=== PATIENT | female | born 1985 | race Caucasian/White ===

== ENCOUNTER 2018-07-08 23:34 | Emergency (ER) | payer SELFPAY ==
[~2018-07-08] VITALS: Ht 157.5 cm; Wt 54.4 kg
--- OUTSIDE RECORDS SUMMARY | 2018-07-08 23:36 | XMS REPORT | Clinical Summary ---
Author Author [facility] Address Unknown Phone Unavailable Care Team Providers Care Networks Computer Consultant Name Role Phone Pcp, No PCP Unavailable Allergies No Known Allergies Medications End Date Status Medication Sig Dispensed Refills Start Date Active tamsulosin (FLOMAX) 0.4 Take 1 tablet 14 capsule 0 04/06/201 mg Cp24 24 hr capsule daily until 7 stone passes. 04/06/2018 naproxen (NAPROSYN) 375 Take 1 tablet 14 tablet 0 04/06/201 MG tablet (375 mg 7 total) by mouth 2 (two) times daily with breakfast and dinner. Active Problems Not on file Social History Date Tobacco Use Types Packs/Day Years Used Never Smoker Alcohol Use Drinks/Week oz/Week Comments No Sex Assigned at Date Recorded Not on file Industry Job Start Date Occupation Not on file Not on file Not on file Travel End Travel History Travel Start No recent travel history available. Last Filed Vital Signs Not on file Plan of Treatment Not on file Results Not on fileafter 07/07/2017 Insurance Payer Benefit Subscriber ID Type Phone Address Plan / Group MEDICAID - MEDICAID MGD GENERIC xxxxxxxxxxxxxx Medicaid CARE MEDICAID Non-Contra HMO [id number]
--- OUTSIDE RECORDS SUMMARY | 2018-07-08 23:36 | XMS REPORT | Clinical Summary ---
Author Author [facility] Organization [facility] Address Unknown Phone Unavailable Care Team Providers Care Sales Representative Supervisor Name Role Phone Asked, No Pcp PCP Unavailable Allergies Active Allergy Reactions Severity Noted Date Comments Ibuprofen Itching 05/08/2018 Ketorolac Itching 03/04/2017 Current Medications Prescription Sig. Disp. Refills Start End Date Status Date sucralfate (CARAFATE) 1 Take 1 tablet (1 g total) 120 tablet 0 06/11/20 07/11/20 Active gram tablet by mouth 4 (four) times a 18 18 day before meals and nightly for 30 days. metoprolol tartrate Take 1 tablet (50 mg 60 tablet 0 06/11/20 07/11/20 Active (LOPRESSOR) 50 mg tablet total) by mouth 2 (two) 18 18 times a day for 30 days. ferrous sulfate 325 (65 Take 1 tablet (325 mg 60 tablet 0 06/11/20 07/11/20 Active FE) MG tablet total) by mouth 2 (two) 18 18 times a day with meals for 30 days. pantoprazole (PROTONIX) Take 1 tablet (40 mg 60 tablet 0 06/11/20 07/11/20 Active 40 MG EC tablet total) by mouth 2 (two) 18 18 times a day for 30 days. famotidine (PEPCID) 40 MG Take 1 tablet (40 mg 30 tablet 0 06/18/20 07/18/20 Active tablet total) by mouth daily for 18 18 30 days. tamsulosin (FLOMAX) 0.4 Take 1 capsule (0.4 mg 30 capsule 0 06/29/20 07/29/20 Active mg capsule total) by mouth daily for 18 18 30 days. ondansetron ODT (ZOFRAN Take 1 tablet (4 mg 12 tablet 0 06/29/20 07/29/20 Active ODT) 4 MG disintegrating total) by mouth every 12 18 18 tablet (twelve) hours as needed for nausea or vomiting for up to 30 days. traMADol (ULTRAM) 50 mg Take 1 tablet (50 mg 20 tablet 0 05/01/20 05/08/20 Discontin tablet total) by mouth every 6 18 18 ued (six) hours as needed for moderate pain for up to 5 days. sucralfate (CARAFATE) 1 Take 1 tablet (1 g total) 120 tablet 0 05/09/20 06/11/20 Discontin gram tablet by mouth 4 (four) times a 18 18 ued day before meals and nightly for 30 days. ondansetron ODT Take 1 tablet (4 mg 30 tablet 0 05/09/20 05/19/20 (ZOFRAN-ODT) 4 MG total) by mouth every 8 18 18 disintegrating tablet (eight) hours as needed for nausea or vomiting for up to 10 days. ferrous sulfate 325 (65 Take 1 tablet (325 mg 60 tablet 0 05/09/20 06/11/20 Discontin FE) MG tablet total) by mouth 2 (two) 18 18 ued times a day with meals for 30 days. sennosides-docusate Take 1 tablet by mouth 2 60 tablet 0 05/09/20 06/08/20 sodium (SENOKOT-S) 8.6-50 (two) times a day for 30 18 18 mg per tablet days. pantoprazole (PROTONIX) Take 1 tablet (40 mg 30 tablet 0 05/09/20 06/11/20 Discontin 40 MG EC tablet total) by mouth daily for 18 18 ued 30 days. metoprolol tartrate Take 50 mg by mouth 06/11/20 Discontin (LOPRESSOR) 50 mg tablet daily. 18 ued ondansetron ODT Take 1 tablet (4 mg 30 tablet 0 06/11/20 06/21/20 (ZOFRAN-ODT) 4 MG total) by mouth every 8 18 18 disintegrating tablet (eight) hours as needed for nausea or vomiting for up to 10 days. pantoprazole (PROTONIX) Take 1 tablet (40 mg 30 tablet 0 06/11/20 06/11/20 Discontin 40 MG EC tablet total) by mouth daily for 18 18 ued 30 days. ciprofloxacin (CIPRO) 500 Take 1 tablet (500 mg 14 tablet 0 06/11/20 06/18/20 MG tablet total) by mouth 2 (two) 18 18 times a day for 7 days. traMADol (ULTRAM) 50 mg Take 1 tablet (50 mg 18 tablet 0 06/11/20 06/16/20 tablet total) by mouth every 6 18 18 (six) hours as needed for moderate pain for up to 5 days. traMADol (ULTRAM) 50 mg Take 1 tablet (50 mg 10 tablet 0 06/18/20 06/25/20 tablet total) by mouth every 6 18 18 (six) hours as needed for severe pain for up to 10 doses. acetaminophen-codeine Take 1-2 tablets by mouth 15 tablet 0 06/29/20 07/04/20 (TYLENOL WITH CODEINE #3) every 6 (six) hours as 18 18 300-30 mg per tablet needed for moderate pain for up to 5 days. Active Problems No known active problems Resolved Problems Problem Noted Date Resolved Date Acute on chronic pancreatitis (HCC) 06/09/2018 06/11/2018 Epigastric pain 06/09/2018 06/11/2018 Overview: Added automatically from request for surgery [id number] Acute pancreatitis without infection or necrosis 05/07/2018 05/09/2018 Encounters Date Type Specialty Care Team Description 06/29/2018 Emergency Emergency Medicine Rian Fitzgerald MD Left flank pain (Primary Shaheen Lopez Dx) Geraldo Box MD 06/18/2018 Emergency Emergency Medicine Elias Blunt, Abdominal pain, DO unspecified abdominal location (Primary Dx); Hypertension, unspecified type 06/11/2018 Anesthesia Gastroenterology Sheyla Lemus MD 06/11/2018 Procedure Pass Gastroenterology 06/11/2018 Surgery Gastroenterology Luz Maria Piper MD ESOPHAGOGASTRODUODENOSCOP Y (EGD) with biopsy 06/09/2018 Emergency General Internal Medicine Ted Jacobson, DO Epigastric pain (Primary - Mazin Paul MD Dx); 06/11/2018 Maritza Hayes Acute on chronic Isabella Chun MD pancreatitis (HCC) 05/08/2018 Procedure Pass General Internal Medicine 05/07/2018 Emergency General Internal Medicine Jaylin Burnham, Non-intractable vomiting - DO with nausea, unspecified 05/09/2018 Elizabeth Alcaraz MD vomiting type (Primary Abouelseoud, Tanseem Dx); Isabella Chun MD Acute pancreatitis without infection or necrosis, unspecified pancreatitis type; Abdominal pain, unspecified abdominal location 05/01/2018 Emergency Emergency Medicine Jaylin Burnham, Flank pain (Primary Dx); DO Acute pancreatitis without infection or necrosis, unspecified pancreatitis type after 07/07/2017 Social History Tobacco Use Types Packs/Day Years Used Date Never Smoker Smokeless Tobacco: Never Used Alcohol Use Drinks/Week oz/Week Comments No Sex Assigned at Date Recorded Not on file Last Filed Vital Signs Vital Sign Reading Time Taken Blood Pressure 170/106 06/29/2018 1:33 AM CDT Pulse 99 06/29/2018 1:33 AM CDT Temperature 36.4 C (97.6 F) 06/29/2018 1:33 AM CDT Respiratory Rate 18 06/29/2018 1:33 AM CDT Oxygen Saturation 100% 06/29/2018 1:33 AM CDT Inhaled Oxygen - - Concentration Weight 54.4 kg (120 lb) 06/18/2018 7:47 PM CDT Height 157.5 cm (5' 2") 06/29/2018 1:33 AM CDT Body Mass Index 21.95 06/18/2018 7:47 PM CDT Plan of Treatment Health Maintenance Due Date Last Done Comments CERVICAL CANCER SCREENING 2006 INFLUENZA VACCINE 04/02/2018 Procedures Procedure Name Priority Date/Time Associated Diagnosis Comments CT RENAL STONE PROTOCOL STAT 06/29/2018 Results for this 3:01 AM CDT procedure are in the results section. HCG QUALITATIVE, URINE Routine 06/29/2018 Results for this SCREEN 2:04 AM CDT procedure are in the results section. URINALYSIS SCREEN AND Routine 06/29/2018 Results for this MICROSCOPY, WITH REFLEX 2:04 AM CDT procedure are in the TO CULTURE results section. ESTIMATED GFR STAT 06/29/2018 Results for this 1:57 AM CDT procedure are in the results section. LIPASE LEVEL STAT 06/29/2018 Results for this 1:57 AM CDT procedure are in the results section. COMPREHENSIVE METABOLIC STAT 06/29/2018 Results for this PANEL 1:57 AM CDT procedure are in the results section. HC COMPLETE BLD COUNT STAT 06/29/2018 Results for this W/AUTO DIFF 1:57 AM CDT procedure are in the results section. LACTIC ACID LEVEL Routine 06/29/2018 Results for this 1:55 AM CDT procedure are in the results section. URINE CULTURE Routine 06/29/2018 Results for this 1:35 AM CDT procedure are in the results section. CT ABDOMEN PELVIS W STAT 06/18/2018 Results for this CONTRAST 10:36 PM CDT procedure are in the results section. ESTIMATED GFR STAT 06/18/2018 Results for this 8:14 PM CDT procedure are in the results section. LIPASE LEVEL STAT 06/18/2018 Results for this 8:14 PM CDT procedure are in the results section. COMPREHENSIVE METABOLIC STAT 06/18/2018 Results for this PANEL 8:14 PM CDT procedure are in the results section. HC COMPLETE BLD COUNT STAT 06/18/2018 Results for this W/AUTO DIFF 8:14 PM CDT procedure are in the results section. HCG QUALITATIVE, URINE STAT 06/18/2018 Results for this SCREEN 8:10 PM CDT procedure are in the results section. URINALYSIS SCREEN AND STAT 06/18/2018 Results for this MICROSCOPY, WITH REFLEX 8:10 PM CDT procedure are in the TO CULTURE results section. URINE CULTURE STAT 06/18/2018 Results for this 7:49 PM CDT procedure are in the results section. SURGICAL PATHOLOGY Routine 06/11/2018 Results for this REQUEST 12:05 PM CDT procedure are in the results section. ESOPHAGOGASTRODUODENOSCOP 06/11/2018 Epigastric pain Y (EGD) 11:30 AM CDT ESTIMATED GFR Routine 06/11/2018 Results for this 7:16 AM CDT procedure are in the results section. COMPREHENSIVE METABOLIC Routine 06/11/2018 Results for this PANEL 7:16 AM CDT procedure are in the results section. HC COMPLETE BLD COUNT Routine 06/11/2018 Results for this W/AUTO DIFF 7:16 AM CDT procedure are in the results section. POTASSIUM LEVEL Timed 06/10/2018 Results for this 8:25 PM CDT procedure are in the results section. CT ABDOMEN PELVIS W STAT 06/10/2018 Results for this CONTRAST 3:27 PM CDT procedure are in the results section. URINE DRUGS OF ABUSE Routine 06/10/2018 Results for this SCREEN 12:11 PM CDT procedure are in the results section. LIPASE LEVEL Routine 06/10/2018 Results for this 6:47 AM CDT procedure are in the results section. ESTIMATED GFR Routine 06/10/2018 Results for this 6:47 AM CDT procedure are in the results section. BASIC METABOLIC PANEL Routine 06/10/2018 Results for this 6:47 AM CDT procedure are in the results section. HC COMPLETE BLD COUNT Routine 06/10/2018 Results for this W/AUTO DIFF 6:47 AM CDT procedure are in the results section. ESTIMATED GFR STAT 06/09/2018 Results for this 8:56 PM CDT procedure are in the results section. LIPASE LEVEL STAT 06/09/2018 Results for this 8:56 PM CDT procedure are in the results section. COMPREHENSIVE METABOLIC STAT 06/09/2018 Results for this PANEL 8:56 PM CDT procedure are in the results section. HC COMPLETE BLD COUNT STAT 06/09/2018 Results for this W/AUTO DIFF 8:56 PM CDT procedure are in the results section. HCG QUALITATIVE, URINE STAT 06/09/2018 Results for this SCREEN 8:39 PM CDT procedure are in the results section. URINALYSIS SCREEN AND STAT 06/09/2018 Results for this MICROSCOPY, WITH REFLEX 8:39 PM CDT procedure are in the TO CULTURE results section. GRAM STAIN STAT 06/09/2018 Results for this 8:39 PM CDT procedure are in the results section. URINE CULTURE STAT 06/09/2018 Results for this 8:39 PM CDT procedure are in the results section. ZZESTIMATED GFR Routine 05/09/2018 Results for this 5:02 AM CDT procedure are in the results section. COMPREHENSIVE METABOLIC Routine 05/09/2018 Results for this PANEL 5:02 AM CDT procedure are in the results section. CBC WITH PLATELET AND Routine 05/09/2018 Results for this DIFFERENTIAL 5:02 AM CDT procedure are in the results section. POTASSIUM LEVEL Timed 05/08/2018 Results for this 11:32 PM CDT procedure are in the results section. HEMOGLOBIN & HEMATOCRIT Routine 05/08/2018 Results for this 2:54 PM CDT procedure are in the results section. MRI CHOLANGIOGRAM W WO STAT 05/08/2018 Results for this CONTRAST 2:35 PM CDT procedure are in the results section. TRANSFUSE RED BLOOD CELLS Routine 05/08/2018 11:[address] ABDOMEN PELVIS WO STAT 05/08/2018 Results for this CONTRAST 8:49 AM CDT procedure are in the results section. XR ABDOMEN 1 VW PORTABLE STAT 05/08/2018 Results for this 6:54 AM CDT procedure are in the results section. PREPARE RBC Timed 05/08/2018 Results for this 6:30 AM CDT procedure are in the results section. TYPE AND SCREEN Timed 05/08/2018 Results for this 6:30 AM CDT procedure are in the results section. MANUAL DIFFERENTIAL Routine 05/08/2018 Results for this 5:03 AM CDT procedure are in the results section. COMPREHENSIVE METABOLIC Routine 05/08/2018 Results for this PANEL 5:03 AM CDT procedure are in the results section. ZZESTIMATED GFR Routine 05/08/2018 Results for this 5:03 AM CDT procedure are in the results section. LIPASE LEVEL Routine 05/08/2018 Results for this 5:03 AM CDT procedure are in the results section. PROTHROMBIN TIME WITH INR Routine 05/08/2018 Results for this 5:03 AM CDT procedure are in the results section. CBC WITH PLATELET AND Routine 05/08/2018 Results for this DIFFERENTIAL 5:03 AM CDT procedure are in the results section. SMEAR REVIEW STAT 05/07/2018 Results for this 6:17 PM CDT procedure are in the results section. ZZESTIMATED GFR STAT 05/07/2018 Results for this 6:17 PM CDT procedure are in the results section. LIPASE LEVEL STAT 05/07/2018 Results for this 6:17 PM CDT procedure are in the results section. COMPREHENSIVE METABOLIC STAT 05/07/2018 Results for this PANEL 6:17 PM CDT procedure are in the results section. HC COMPLETE BLD COUNT STAT 05/07/2018 Results for this W/AUTO DIFF 6:17 PM CDT procedure are in the results section. TRIGLYCERIDES Routine 05/07/2018 Results for this 5:40 PM CDT procedure are in the results section. HCG QUALITATIVE, URINE STAT 05/07/2018 Results for this SCREEN 5:40 PM CDT procedure are in the results section. URINALYSIS SCREEN AND STAT 05/07/2018 Results for this MICROSCOPY, WITH REFLEX 5:40 PM CDT procedure are in the TO CULTURE results section. GRAM STAIN STAT 05/07/2018 Results for this 5:40 PM CDT procedure are in the results section. URINE CULTURE STAT 05/07/2018 Results for this 5:40 PM CDT procedure are in the results section. CT RENAL STONE PROTOCOL STAT 05/01/2018 Results for this 5:08 PM CDT procedure are in the results section. SMEAR REVIEW STAT 05/01/2018 Results for this 3:55 PM CDT procedure are in the results section. ZZESTIMATED GFR STAT 05/01/2018 Results for this 3:55 PM CDT procedure are in the results section. LIPASE LEVEL STAT 05/01/2018 Results for this 3:55 PM CDT procedure are in the results section. COMPREHENSIVE METABOLIC STAT 05/01/2018 Results for this PANEL 3:55 PM CDT procedure are in the results section. HC COMPLETE BLD COUNT STAT 05/01/2018 Results for this W/AUTO DIFF 3:55 PM CDT procedure are in the results section. HCG QUALITATIVE, URINE STAT 05/01/2018 Results for this SCREEN 3:53 PM CDT procedure are in the results section. URINALYSIS SCREEN AND STAT 05/01/2018 Results for this MICROSCOPY, WITH REFLEX 3:53 PM CDT procedure are in the TO CULTURE results section. GRAM STAIN STAT 05/01/2018 Results for this 3:53 PM CDT procedure are in the results section. URINE CULTURE STAT 05/01/2018 Results for this 3:53 PM CDT procedure are in the results section. after 07/07/2017 Results * CT Renal Stone Protocol (06/29/2018 3:01 AM) Only the most recent of 2 results within the time period is included. Narrative Performed At EXAMINATION:CT RENAL STONE PROTOCOL [facility] CLINICAL HISTORY:L flank pain TECHNIQUE: Multiple axial images of the abdomen and pelvis were obtained without intravenous administration of iodinated contrast. Sagittal and coronal computerized reformatted images were also obtained. The lack of intravenous contrast reduces the sensitivity of detecting solid organ disease. CT imaging was performed with iterative reconstruction technique and/or automated exposure control to reduce radiation dose. COMPARISON:06/18/2018 IMPRESSION: Some air trapping is seen of the left lower lobe. Patient is status post cholecystectomy. Liver, spleen, pancreas, adrenal glands are normal. Simple cyst is seen of the inferior pole of left kidney. Punctate nonobstructive calculi are seen throughout the collecting system of the kidneys bilaterally. No hydronephrosis or hydroureter. The bladder is unremarkable. No free intraperitoneal fluid or air. Diverticulosis is seen without diverticulitis. The appendix is normal. No gastrointestinal tract obstruction. No acute osseous abnormalities. CONCLUSION: Multiple nonobstructive calculi are seen of the collecting system of the kidneys bilaterally. [facility]-[id number] Procedure Note Hm Interface, Radiology Results Incoming - 06/29/2018 3:16 AM CDT EXAMINATION: CT RENAL STONE PROTOCOL CLINICAL HISTORY: L flank pain TECHNIQUE: Multiple axial images of the abdomen and pelvis were obtained without intravenous administration of iodinated contrast. Sagittal and coronal computerized reformatted images were also obtained. The lack of intravenous contrast reduces the sensitivity of detecting solid organ disease. CT imaging was performed with iterative reconstruction technique and/or automated exposure control to reduce radiation dose. COMPARISON: 06/18/2018 IMPRESSION: Some air trapping is seen of the left lower lobe. Patient is status post cholecystectomy. Liver, spleen, pancreas, adrenal glands are normal. Simple cyst is seen of the inferior pole of left kidney. Punctate nonobstructive calculi are seen throughout the collecting system of the kidneys bilaterally. No hydronephrosis or hydroureter. The bladder is unremarkable. No free intraperitoneal fluid or air. Diverticulosis is seen without diverticulitis. The appendix is normal. No gastrointestinal tract obstruction. No acute osseous abnormalities. CONCLUSION: Multiple nonobstructive calculi are seen of the collecting system of the kidneys bilaterally. [facility]-[id number] Performing Organization Address City/State/Zipcode Phone Number [facility] [address] [place] [address] * Urinalysis screen and microscopy, with reflex to culture (06/29/2018 2:04 AM) Only the most recent of 5 results within the time period is included. Specimen site Clean catch [facility] Color, UA Yellow [facility] Appearance, UA Clear [facility] Specific gravity, UA 1.026 1.001 - 1.035 [facility] pH, UA 5.0 5.0 - 8.5 [facility] Protein, UA 1+ (A) Negative [facility] Glucose, UA Negative Negative [facility] Ketones, UA Negative Negative [facility] Bilirubin, UA Negative Negative [facility] Blood, UA Moderate (A) Negative [facility] Nitrite, UA Negative Negative [facility] Urobilinogen, UA Negative <2.0 [facility] Leukocyte esterase, UA Negative Negative [facility] Epithelial cells, UA Moderate /HPF [facility] WBC, UA 1 0 - 5 /HPF [facility] RBC, UA 23 (H) 0 - 5 /HPF [facility] Bacteria, UA None seen None seen [facility] Yeast, UA None seen [facility] Yeast with pseudohyphae, None seen [facility]A PATHOLOGY AND GENOMIC MEDICINE Specimen Urine Performing Organization Address City/State/Zipcode Phone Number [facility] [address] [place] [address] PATHOLOGY AND [employer] [facility] * hCG qualitative, urine screen (06/29/2018 2:04 AM) Only the most recent of 5 results within the time period is included. hCG qualitative, urine Negative Negative [facility] Comment: PATHOLOGY AND The manufacturers stated GENOMIC MEDICINE sensitivity of HcG test for serum is >/=10 mIU/ml and urine is >/=20mIU/ml. Specimen Urine Performing Organization Address City/[facility] Phone Number [facility] [address] [place] [address] PATHOLOGY AND [employer] * Estimated GFR (06/29/2018 1:57 AM) Only the most recent of 5 results within the time period is included. Estimated GFR 74 mL/min/1.73 m2 [facility] Comment: PATHOLOGY AND [employer] GENOMIC MEDICINE rpretation G1 >=90 Normal or high G2 60-89Mildly decreased [id number] Mildly to moderately decreased [id number] Moderately to severely decreased G4 15-29Severely decreased G5 <15Kidney failure The eGFR was calculated using the Chronic Kidney Disease Epidemiology Collaboration (CKD-EPI) equation. Interpretation is based on recommendations of the National Kidney Foundation-Kidney Disease Outcomes Quality Initiative (NKF-KDOQI) published in 2014. Specimen Plasma specimen Performing Organization Address City/State/Zipcode Phone Number [facility] [address] [place] [address] [employer] AND [employer] * CBC with platelet and differential (06/29/2018 1:57 AM) Only the most recent of 9 results within the time period is included. WBC 23.2 (H) 4.2 - 11.0 k/uL [facility] MEDIC[facility] RBC 4.34 4.04 - 5.86 m/uL [facility]OMIC MEDIC[facility] HGB 9.3 (L) 11.5 - 15.3 g/dL [facility]IC[facility] HCT 31.9 (L) 34.0 - 45.0 % [facility] MEDIC[facility] MCV 73.5 (L) 80.0 - 98.0 fL [facility]IC[facility] MCH 21.4 (L) 27.0 - 34.0 pg [facility]IC[facility] MCHC 29.2 (L) 31.5 - 36.5 g/dL [facility] MEDIC[facility] RDW - SD 61.1 (H) 37.0 - 51.0 fL [facility]IC[facility] MPV 8.9 7.4 - 10.4 fL [facility]IC[facility] Platelet count 549 (H) 150 - 400 k/uL [facility]IC[facility] Nucleated RBC 0.00 /100 WBC [facility]IC[facility] Neutrophils 83.7 (H) 36.0 - 66.0 % [facility]IC[facility] Lymphocytes 9.4 (L) 24.0 - 44.0 % [facility]IC[facility] Monocytes 4.9 0.0 - 6.0 % [facility]IC[facility] Eosinophils 1.1 0.0 - 6.0 % [facility]IC[facility] Basophils 0.3 0.0 - 1.2 % [facility]IC[facility] Immature granulocytes 0.6 0.0 - 1.0 % [facility]IC[facility] Specimen Blood Performing Organization Address City/State/Zipcode Phone Number [place] [phone] [place] [address] PATHOLOGY AND GENOMIC MEDICINE * Lipase level (06/29/2018 1:57 AM) Only the most recent of 7 results within the time period is included. Lipase 102 (H) 13 - 60 U/L [facility]IC[facility] Specimen Plasma specimen Performing Organization Address City/State/Zipcode Phone Number [facility] [address] [place] [address] PATHOLOGY AND GENOMIC MEDICINE * Comprehensive metabolic panel (06/29/2018 1:57 AM) Only the most recent of 8 results within the time period is included. Sodium 139 135 - 150 mEq/L [facility]IC[facility] Potassium 3.3 (L) 3.5 - 5.0 mEq/L [facility]IC[facility] Chloride 104 98 - 112 mEq/L [facility]IC[facility] CO2 19 (L) 24 - 31 mmol/L [facility]OM[facility]IC[facility] Anion gap 16@ANIO (H) 7 - 15 mEq/L [facility]OMIC MEDICINE BUN 18 7 - 18 mg/dL [facility]Y AND GENOMIC MEDICINE Creatinine 1.00 (H) 0.50 - 0.90 mg/dL [facility]OLOGY AND GENOMIC MEDICINE Glucose 96 65 - 100 mg/dL [facility]OLOGY AND GENOMIC MEDICINE Calcium 9.8 8.3 - 10.2 mg/dL [facility]OLOGY AND GENOMIC MEDICINE Protein 8.3 6.3 - 8.3 g/dL [facility] PATHOLOGY AND GENOMIC MEDICINE Albumin 4.1 3.5 - 5.0 g/dL [facility]OLOGY AND GENOMIC MEDICINE A/G ratio 1.0 0.7 - 3.8 [facility]OLOGY AND GENOMIC MEDICINE Alkaline phosphatase 134 (H) 0 - 104 U/L [facility] AND GENOMIC MEDICINE AST 18 10 - 35 U/L [facility]OLOGY AND GENOMIC MEDICINE ALT 9 5 - 50 U/L [facility] PATHOLOGY AND GENOMIC MEDICINE Total bilirubin <0.3 0.2 - 1.2 mg/dL [facility] PATHOLOGY AND GENOMIC MEDICINE Specimen Plasma specimen Performing Organization Address City/[facility]/Zipcode Phone Number [facility] [address] [place] [address] PATHOLOGY AND GENOMIC MEDICINE * Lactic acid level (06/29/2018 1:55 AM) Lactic acid 0.6 0.5 - 2.2 mmol/L [facility] PATHOLOGY AND GENOMIC MEDICINE Specimen Blood Performing Organization Address City/[facility]/Zipcode Phone Number [facility] [address] [place] [address] PATHOLOGY AND GENOMIC MEDICINE * Urine culture (06/29/2018 1:35 AM) Only the most recent of 5 results within the time period is included. Urine culture SEE COMMENTComment: [facility] Bacteriuria screen negative. PATHOLOGY AND GENOMIC MEDICINE Performing Organization Address City/State/Zipcode Phone Number [facility] [address] [place] [address] PATHOLOGY AND GENOMIC MEDICINE * CT Abdomen Pelvis W Contrast (06/18/2018 10:36 PM) Only the most recent of 2 results within the time period is included. Narrative Performed At CT ABDOMEN PELVIS W CONTRAST [facility] CLINICAL INDICATION: luq epigastr pain TECHNIQUE:Multidetector CT imaging of the abdomen and pelvis was performed following the intravenous administration of iodinated contrast with automated exposure control and/or iterative reconstruction techniques to radiation dose. COMPARISON:06/10/2018 FINDINGS: LUNG BASES:Clear. LIVER:Normal. BILIARY:Status post cholecystectomy. SPLEEN:Normal. PANCREAS:Normal. ADRENALS:Normal. KIDNEYS:There are several bilateral nonobstructive renal calculi ranging from 2 to 6 mm. No hydronephrosis or perinephric stranding is identified and there is no ureteral calculus or urinary tract obstruction. GI:Debris is noted within the stomach without wall thickening. Small bowel loops in a nonspecific fluid and there is scattered stool through the relatively nondistended colon without wall thickening or pericolonic inflammatory changes. The appendix is not identified as it was on prior exam extending transversely in the pelvis anterior to the uterus on 05/08/2018. Portions of the appendix are visualized in the right lower quadrant but there are other foci of ill-defined gas. No significant inflammatory changes are associated. VASCULAR:Unremarkable LYMPH NODES:No enlarged lymph nodes in the abdomen or pelvis. PELVIS:The uterus is unremarkable. The left ovary appears within normal limits, the right ovary also well seen with interval decrease of rim-enhancing cyst from prior exam. No significant free fluid in the pelvis. BONES:Unremarkable. OTHER: IMPRESSION: No acute inflammatory process identified in the abdomen or pelvis. Nonspecific fluid noted through the stomach and bowel without wall thickening or inflammatory changes. Of note, the appendix is not well seen in the right lower quadrant as on other exams but there no inflammatory changes. Probable involuting right ovarian cyst noted withchange from 06/10/2018. Thank you for allowing us to participate in the care of your patient. Findings were discussed with Dr. Blunt in the ED particularly diagnostic limitations of the right lower quadrant; acute appendicitis is not suspected clinically. [facility]-[id number] Procedure Note Hm Interface, Radiology Results Incoming - 06/18/2018 10:[address] ABDOMEN PELVIS W CONTRAST CLINICAL INDICATION: luq epigastr pain TECHNIQUE: Multidetector CT imaging of the abdomen and pelvis was performed following the intravenous administration of iodinated contrast with automated exposure control and/or iterative reconstruction techniques to radiation dose. COMPARISON: 06/10/2018 FINDINGS: LUNG BASES: Clear. LIVER: Normal. BILIARY: Status post cholecystectomy. SPLEEN: Normal. PANCREAS: Normal. ADRENALS: Normal. KIDNEYS: There are several bilateral nonobstructive renal calculi ranging from 2 to 6 mm. No hydronephrosis or perinephric stranding is identified and there is no ureteral calculus or urinary tract obstruction. GI: Debris is noted within the stomach without wall thickening. Small bowel loops in a nonspecific fluid and there is scattered stool through the relatively nondistended colon without wall thickening or pericolonic inflammatory changes. The appendix is not identified as it was on prior exam extending transversely in the pelvis anterior to the uterus on 05/08/2018. Portions of the appendix are visualized in the right lower quadrant but there are other foci of ill-defined gas. No significant inflammatory changes are associated. VASCULAR: Unremarkable LYMPH NODES: No enlarged lymph nodes in the abdomen or pelvis. PELVIS: The uterus is unremarkable. The left ovary appears within normal limits, the right ovary also well seen with interval decrease of rim-enhancing cyst from prior exam. No significant free fluid in the pelvis. BONES: Unremarkable. OTHER: IMPRESSION: No acute inflammatory process identified in the abdomen or pelvis. Nonspecific fluid noted through the stomach and bowel without wall thickening or inflammatory changes. Of note, the appendix is not well seen in the right lower quadrant as on other exams but there no inflammatory changes. Probable involuting right ovarian cyst noted with change from 06/10/2018. Thank you for allowing us to participate in the care of your patient. Findings were discussed with Dr. Blunt in the ED particularly diagnostic limitations of the right lower quadrant; acute appendicitis is not suspected clinically. [facility]-[id number] Performing Organization Address City/State/Zipcode Phone Number [facility] [address] [place] [address] * Surgical pathology request (06/11/2018 12:05 PM) [facility]OLOGY AND GENOMIC MEDICINE Surgical pathology report See link below for PDF Lab [facility] Report PATHOLOGY AND GENOMIC MEDICINE Result status This is Final Report for [facility] [id number] PATHOLOGY AND GENOMIC MEDICINE Performing Organization Address City/[facility] [place] [address] PATHOLOGY AND GENOMIC MEDICINE * Potassium level (06/10/2018 8:25 PM) Only the most recent of 2 results within the time period is included. Potassium 3.7 3.5 - 5.0 mEq/L [facility] PATHOLOGY AND GENOMIC MEDICINE Specimen Plasma specimen Performing Organization Address City/[facility] [place] [address] PATHOLOGY AND GENOMIC MEDICINE * Urine drugs of abuse screen (06/10/2018 12:11 PM) Amphetamine screen, urine Negative [facility] PATHOLOGY AND GENOMIC MEDICINE Barbiturate screen, urine Negative [facility] PATHOLOGY AND GENOMIC MEDICINE Benzodiazepine screen, Negative [facility] urine PATHOLOGY AND GENOMIC MEDICINE Cannabinoid screen, urine Negative [facility] PATHOLOGY AND GENOMIC MEDICINE Cocaine screen, urine Negative [facility] PATHOLOGY AND GENOMIC MEDICINE Methadone metabolite Negative [facility] (EDDP), urine PATHOLOGY AND GENOMIC MEDICINE Opiates screen, urine Positive (A) [facility] PATHOLOGY AND GENOMIC MEDICINE Phencyclidine screen, Negative [facility] urine PATHOLOGY AND GENOMIC MEDICINE Specimen Urine Performing Organization Address City/[facility] [place] [address] PATHOLOGY AND GENOMIC MEDICINE * Basic metabolic panel (06/10/2018 6:47 AM) Sodium 140 135 - 150 mEq/L [facility] PATHOLOGY AND GENOMIC MEDICINE Potassium 3.4 (L) 3.5 - 5.0 mEq/L [facility] PATHOLOGY AND GENOMIC MEDICINE Chloride 108 98 - 112 mEq/L [facility] PATHOLOGY AND GENOMIC MEDICINE CO2 20 (L) 24 - 31 mmol/L [facility] PATHOLOGY AND GENOMIC MEDICINE Anion gap 12@ANIO 7 - 15 mEq/L [facility] PATHOLOGY AND GENOMIC MEDICINE BUN 12 7 - 18 mg/dL [facility] PATHOLOGY AND GENOMIC MEDICINE Creatinine 0.70 0.50 - 0.90 mg/dL [facility] PATHOLOGY AND GENOMIC MEDICINE Glucose 109 (H) 65 - 100 mg/dL [facility] PATHOLOGY AND GENOMIC MEDICINE Calcium 8.5 8.3 - 10.2 mg/dL [facility] PATHOLOGY AND GENOMIC MEDICINE Specimen Plasma specimen Performing Organization Address City/State/Zipcode Phone Number [facility] [address] [place] [address] PATHOLOGY AND [facility] MEDICINE * Gram stain (06/09/2018 8:39 PM) Only the most recent of 3 results within the time period is included. Gram stain result No WBC's [facility] Rare Gram positive cocci in PATHOLOGY AND [facility] GENOMIC MEDICINE Comment: Specimen Information Specimen Source: Urine Specimen Site: Clean catch Specimen Urine Performing Organization Address City/[facility] Phone Number [facility] [address] [place] [address] PATHOLOGY AND [facility] MEDICINE * Estimated GFR (05/09/2018 5:02 AM) Only the most recent of 4 results within the time period is included. GFR Non Af Amer >90 mL/min/1.73 m2 [facility] PATHOLOGY AND GENOMIC MEDICINE GFR Af Amer >90 mL/min/1.73 m2 [facility] Comment: PATHOLOGY AND Chronic kidney disease: <60 GENOMIC MEDICINE mL/min/1.73m2 Kidney failure: <15 mL/min/1.73m2 The estimated GFR is calculated from the IDMS-traceable Modification of Diet in Renal Disease Equation. The accuracy of the calculation is poor when the creatinine is normal. Calculated values >90 mL/min/1.73m2 are not reported. This equation has not been validated in children (<18 years), women, the elderly (>70 years), or ethnic groups other than Caucasians and Americans. Specimen Plasma specimen Performing Organization Address City/[facility]/Zipcode Phone Number [facility] [address] [place] [address] PATHOLOGY AND [employer] MEDICINE * Hemoglobin & hematocrit (05/08/2018 2:54 PM) HGB 9.2 (L)Comment: patient 11.5 - 15.3 g/dL [facility] received blood PATHOLOGY AND GENOMIC MEDICINE HCT 32.8 (L) 34.0 - 45.0 % [facility] PATHOLOGY AND GENOMIC MEDICINE Specimen Blood Performing Organization Address City/State/Zipcode Phone Number [facility] [address] [place] [address] PATHOLOGY AND GENOMIC MEDICINE * MRI CHOLANGIOGRAM W WO CONTRAST (05/08/2018 2:35 PM) Narrative Performed At [facility] EXAMINATION:MRI CHOLANGIOGRAM W WO CONTRAST CLINICAL HISTORY:abd pain COMPARISON:CT May 08, 2018 TECHNIQUE: Multiplanar, multisequence MRI of the abdomen with and without intravenous gadolinium. MRCP images were obtained with 3-D reconstructions performed on the acquisition scanner under concurrent supervision. FINDINGS: MRCP images demonstrate no biliary or pancreatic ductal dilatation. No choledocholithiasis. Common bile duct is approximately 4 mm in diameter. Status post cholecystectomy. No evidence of pancreatic mass or pancreatitis. Liver normal in size and contour. Spleen is normal in size. Couple of left renal cysts measure up to 2 cm. Nephrolithiasis is better appreciated on recent CT. No ascites or fluid collection. IMPRESSION: Unremarkable MRCP. [facility]-[id number] Procedure Note Interface, Radiology Results Incoming - 05/08/2018 2:50 PM CDT EXAMINATION: MRI CHOLANGIOGRAM W WO CONTRAST CLINICAL HISTORY: abd pain COMPARISON: CT May 08, 2018 TECHNIQUE: Multiplanar, multisequence MRI of the abdomen with and without intravenous gadolinium. MRCP images were obtained with 3-D reconstructions performed on the acquisition scanner under concurrent supervision. FINDINGS: MRCP images demonstrate no biliary or pancreatic ductal dilatation. No choledocholithiasis. Common bile duct is approximately 4 mm in diameter. Status post cholecystectomy. No evidence of pancreatic mass or pancreatitis. Liver normal in size and contour. Spleen is normal in size. Couple of left renal cysts measure up to 2 cm. Nephrolithiasis is better appreciated on recent CT. No ascites or fluid collection. IMPRESSION: Unremarkable MRCP. [facility]-[id number] Performing Organization Address City/State/Zipcode Phone Number [facility] [address] [place] [address] * Transfuse RBC (05/08/2018 11:18 AM) Only the most recent of 2 results within the time period is included. * CT Abdomen Pelvis Wo Contrast (05/08/2018 8:49 AM) Narrative Performed At EXAMINATION:CT ABDOMEN PELVIS WO CONTRAST [facility] CLINICAL HISTORY:abd pain TECHNIQUE:Multiple axial CT images of the abdomen and pelvis are obtained without the use of intravenous contrast. Coronal and sagittal 3-D reconstructions are obtained. CT scans are performed using radiation dose reduction techniques.Technical factors are evaluated and adjusted to ensure appropriate moderation of exposure.Automated dose management technology is applied to adjust radiation exposure while achieving a diagnostic quality image. COMPARISON:05/01/2018 FINDINGS: Abdomen: The evaluation of the solid organs is limited without the use of intravenous contrast. The visualized lower lung zones are clear. The gallbladder has been removed.. The CT appearance of the liver, spleen, pancreas and adrenal glands is unremarkable . The abdominal aorta has no aneurysmal dilatation. There is no retroperitoneal adenopathy. The pancreas does not have any focal inflammation. The right kidney demonstrates multiple stones. They range in size from 2 to 4 mm. There is no hydronephrosis present. The left kidney has multiple stones present. There is no evidence of any hydronephrosis. CT Pelvis: There is no evidence of any pneumoperitoneum. Stomach does not have any wall thickening. Evaluation of the GI tract is limited without any oral contrast. Moderate colonic fecal retention is present. There is no evidence of any inguinal hernia. There has been interval development of a 3.5 cm left ovarian cyst since the prior study. The bladder does not demonstrate any masses. There is no inguinal hernia. IMPRESSION: 1. The pancreas does not demonstrate any focal inflammation. 2. There are bilateral intrarenal stones. Stones range in size from 2 to 4 mm. There is no hydronephrosis present. 3. The left kidney has a focal 1.6 cm cyst present. 4. Interval development of a 3.5 cm left ovarian cyst since the prior study. [id number] 05/01/2018 Procedure Note Hm Interface, Radiology Results Incoming - 05/08/2018 9:36 AM CDT EXAMINATION: CT ABDOMEN PELVIS WO CONTRAST CLINICAL HISTORY: abd pain TECHNIQUE: Multiple axial CT images of the abdomen and pelvis are obtained without the use of intravenous contrast. Coronal and sagittal 3-D reconstructions are obtained. CT scans are performed using radiation dose reduction techniques. Technical factors are evaluated and adjusted to ensure appropriate moderation of exposure. Automated dose management technology is applied to adjust radiation exposure while achieving a diagnostic quality image. COMPARISON: 05/01/2018 FINDINGS: Abdomen: The evaluation of the solid organs is limited without the use of intravenous contrast. The visualized lower lung zones are clear. The gallbladder has been removed.. The CT appearance of the liver, spleen, pancreas and adrenal glands is unremarkable . The abdominal aorta has no aneurysmal dilatation. There is no retroperitoneal adenopathy. The pancreas does not have any focal inflammation. The right kidney demonstrates multiple stones. They range in size from 2 to 4 mm. There is no hydronephrosis present. The left kidney has multiple stones present. There is no evidence of any hydronephrosis. CT Pelvis: There is no evidence of any pneumoperitoneum. Stomach does not have any wall thickening. Evaluation of the GI tract is limited without any oral contrast. Moderate colonic fecal retention is present. There is no evidence of any inguinal hernia. There has been interval development of a 3.5 cm left ovarian cyst since the prior study. The bladder does not demonstrate any masses. There is no inguinal hernia. IMPRESSION: 1. The pancreas does not demonstrate any focal inflammation. 2. There are bilateral intrarenal stones. Stones range in size from 2 to 4 mm. There is no hydronephrosis present. 3. The left kidney has a focal 1.6 cm cyst present. 4. Interval development of a 3.5 cm left ovarian cyst since the prior study. [id number] 05/01/2018 Performing Organization Address [employer] Phone Number [facility] [address] [place] [address] * XR Abdomen 1 Vw Portable (05/08/2018 6:54 AM) Narrative Performed At EXAMINATION:XR ABDOMEN 1 VW PORTABLE [facility] CLINICAL HISTORY:Abd painunspecified COMPARISON:No prior IMPRESSION: 1.The bowel gas pattern is non specific without evidence of obstruction.No pathologic calcifications. Moderate stool in the colon compatible with constipation. Cholecystectomy clips. Calcifications in the upper quadrants compatible with bilateral renal calculi. Procedure Note Interface, Radiology Results Incoming - 05/08/2018 7:01 AM CDT EXAMINATION: XR ABDOMEN 1 VW PORTABLE CLINICAL HISTORY: Abd pain unspecified COMPARISON: No prior IMPRESSION: 1. The bowel gas pattern is non specific without evidence of obstruction. No pathologic calcifications. Moderate stool in the colon compatible with constipation. Cholecystectomy clips. Calcifications in the upper quadrants compatible with bilateral renal calculi. Performing Organization Address [employer] Phone Number [facility] [address] [place] [address] * Prepare RBC, 1 Units (05/08/2018 6:30 AM) Product name Red Blood Cells -1, Leukored [facility] AND GENOMIC MEDICINE Unit number [id number] [facility]OLOGY AND GENOMIC MEDICINE Product code [id number] [facility] PATHOLOGY AND GENOMIC MEDICINE Dispense status Transfused [facility]OLOGY AND GENOMIC MEDICINE Blood expiration date [facility] PATHOLOGY AND GENOMIC MEDICINE Blood type code 9500 [facility] PATHOLOGY AND GENOMIC MEDICINE Blood type O NEGATIVE [facility] PATHOLOGY AND GENOMIC MEDICINE Performing Organization Address City/[facility]/Zipcode Phone Number [address] [address] PATHOLOGY AND GENOMIC MEDICINE * Type and screen (05/08/2018 6:30 AM) ABO grouping O [facility]Y AND GENOMIC MEDICINE Rh type POS [facility]OLOGY AND GENOMIC MEDICINE Antibody screen (gel) NEG [facility] PATHOLOGY AND GENOMIC MEDICINE Specimen Blood Performing Organization Address City/[facility]/Zipcode Phone Number [address] [address] PATHOLOGY AND GENOMIC MEDICINE * Manual differential (05/08/2018 5:03 AM) Manual differential PERFORMED [facility] PATHOLOGY AND GENOMIC MEDICINE Neutrophils 72.0 (H) 36.0 - 66.0 % [facility] PATHOLOGY AND GENOMIC MEDICINE Lymphocytes 22.0 (L) 24.0 - 44.0 % [facility] PATHOLOGY AND GENOMIC MEDICINE Monocytes 6.0 0.0 - 6.0 % [facility] PATHOLOGY AND GENOMIC MEDICINE Eosinophils 0.0 0.0 - 6.0 % [facility] PATHOLOGY AND GENOMIC MEDICINE Basophils 0.0 0.0 - 1.2 % [facility] PATHOLOGY AND GENOMIC MEDICINE Metamyelocytes 0 0 - 1 % [facility] PATHOLOGY AND GENOMIC MEDICINE Promyelocytes 0 0 - 1 % [facility] PATHOLOGY AND GENOMIC MEDICINE Platelet slide review [place] adequate [facility]OLOGY AND GENOMIC MEDICINE Anisocytosis slight [facility] PATHOLOGY AND GENOMIC MEDICINE Polychromasia slight [facility] PATHOLOGY AND GENOMIC MEDICINE Schistocytes Occasional [facility] PATHOLOGY AND GENOMIC MEDICINE Ovalocytes few [facility] PATHOLOGY AND GENOMIC MEDICINE Alfredo cells few [facility] PATHOLOGY AND GENOMIC MEDICINE Performing Organization Address City/State/Zipcode Phone Number [facility] [address] [place] [address] PATHOLOGY AND GENOMIC MEDICINE * Prothrombin time with INR (05/08/2018 5:03 AM) Prothrombin time 14.0 12.0 - 15.0 sec [facility] PATHOLOGY AND GENOMIC MEDICINE INR 1.07 0.92 - 1.12 [facility] Comment: PATHOLOGY AND For patients on anticoagulant GENOMIC MEDICINE therapy, reference ranges below: Indication: INR Value Treatment of Venous Thrombosis, 2.0-3.0 pulmonary emboli, or prophylaxis of a venous thrombosis, or systemic emboli. High dose, high risk patients 3.0-4.5 with mechanical valves. NOTE:INR values over 3.0 are sometimes associated with gastrointestinal hemorrhage, especially values over 4.0. Specimen Blood Performing Organization Address City/[facility] Phone Number [place] [address] [place] [phone] PATHOLOGY AND GENOMIC MEDICINE * Smear review (05/07/2018 6:17 PM) Only the most recent of 2 results within the time period is included. Platelet slide review [place] slt incr [facility] PATHOLOGY AND GENOMIC MEDICINE Anisocytosis 1+ [facility] PATHOLOGY AND GENOMIC MEDICINE Alfredo cells 2+ (A)Comment: Corrected [facility] result; previously reported as PATHOLOGY AND . 2+ on 05/07/2018 at 19:35 by [facility] Performing Organization Address City/[facility]/Zipcode Phone Number [facility] [address] [place] [address] PATHOLOGY AND GENOMIC MEDICINE * Triglycerides (05/07/2018 5:40 PM) Triglycerides 79 0 - 149 mg/dL [facility] AND GENOMIC MEDICINE Specimen Plasma specimen Performing Organization Address City/State/Zipcode Phone Number [facility] [address] [place] [address] PATHOLOGY AND GENOMIC MEDICINE after 07/07/2017
--- OUTSIDE RECORDS SUMMARY | 2018-07-08 23:37 | XMS REPORT | Summary of Care ---
Author Author [facility] Organization [facility] Address Unknown Phone Unavailable Encounter ADARSH Regalado(SOL) [id number] Date(s): 06/07/17 - 06/07/17 [facility] [address] [place], [place], [place] [address]- [phone] Discharge Diagnosis: Epistaxis Discharge Diagnosis: Hypertension Discharge Diagnosis: Tachycardia Discharge Disposition: Home or Self Care Attending Physician: Kale Carrasquillo MD Vital Signs Most recent to 1 2 oldest [Reference Range]: Height 157.48 cm (06/07/17 12:28 PM) Temperature Oral 98.5 DegF [96.4-99.1 DegF] (06/07/17 12:28 PM) Blood Pressure 158/74 mmHg 197/92 mmHg [90-140/60-90 mmHg] *HI* *HI* (06/07/17 1:38 PM) (06/07/17 12:28 PM) Respiratory Rate 16 BRMIN 16 BRMIN [14-20 BRMIN] (06/07/17 1:38 PM) (06/07/17 12:28 PM) Peripheral Pulse 103 bpm 117 bpm Rate [60-100 bpm] *HI* *HI* (06/07/17 1:38 PM) (06/07/17 12:28 PM) Weight 45.455 kg (06/07/17 12:28 PM) Body Mass Index 18.33 m2 (06/07/17 12:28 PM) Problem List Condition Effective Dates Status Health Status Informant Cholecystitis(Confir Resolved med) HTN Resolved (hypertension)(Confi rmed) Kidney Resolved stones(Confirmed) Allergies, Adverse Reactions, Alerts Substance Reaction Severity Status Toradol Active Medications Afrin 0.05% nasal spray 2 spray, Route: NASAL, ONCE, Start date: 06/07/17 12:44:00 CDT, Stop date: 06/07 12:44:00 CDT Start Date: 06/07/17 Stop Date: 06/07/17 Status: Completed NS (Bolus) IV 1,000 mL, 1,000 ml/hr, Infuse Over: 1 hr, Route: IV, ONCE, Priority: STAT, Dosin g Weight 45.455 kg, Start date: 06/07/17 12:44:00 CDT, Duration: 1 doses or time s, Stop date: 06/07/17 12:44:00 CDT Start Date: 06/07/17 Stop Date: 06/07/17 Status: Completed Tylenol 975 mg, Route: PO, Drug form: TAB, ONCE, Dosing Weight 45.455, kg, Priority: STA T, Start date: 06/07/17 12:48:00 CDT, Stop date: 06/07/17 12:48:00 CDT Start Date: 06/07/17 Stop Date: 06/07/17 Status: Completed Results No data available for this section Immunizations No data available for this section Procedures Procedure Date Related Diagnosis Body Site Cholecystectomy Social History Social History Type Response Smoking Status Never smoker; Exposure to Tobacco Smoke None; Cigarette Smoking Last 365 Days No; Reg Smoking Cessation Counseling No Assessment and Plan No data available for this section
--- OUTSIDE RECORDS SUMMARY | 2018-07-08 23:37 | XMS REPORT | Summary of Care ---
Author Author [facility] Organization [facility] Address Unknown Phone Unavailable Encounter ADARSH Regalado(SOL) [id number] Date(s): 05/13/17 - 05/13/17 [facility] [address] [employer] provided by [employer] [facility] [place] [address]- Discharge Diagnosis: Renal stone Discharge Disposition: Home or Self Care Attending Physician: Shell Hannah MD Vital Signs 1 2 3 Most recent to oldest [Reference Range]: 157.48 cm (05/13/17 5:15 AM) Height 98.5 DegF (05/13/17 8:13 AM) 98.3 DegF (05/13/17 5:15 AM) Temperature Oral [96.4-99.1 DegF] 138/83 mmHg (05/13/17 8:13 AM) 128/94 mmHg (05/13/17 6:30 AM) 151/94 mmHg *HI* (05/13/17 5:15 AM) Blood Pressure [90-140/60-90 mmHg] 18 BRMIN (05/13/17 8:13 AM) 18 BRMIN (05/13/17 6:30 AM) 18 BRMIN (05/13/17 5:15 AM) Respiratory Rate [14-20 BRMIN] 115 bpm *HI* (05/13/17 5:15 AM) Peripheral Pulse Rate [60-100 bpm] 43.636 kg (05/13/17 5:15 AM) Weight 17.6 m2 (05/13/17 5:15 AM) Body Mass Index Problem List Condition Effective Dates Status Health Status Informant Cholecystitis(Confir Resolved med) Kidney Resolved stones(Confirmed) Allergies, Adverse Reactions, Alerts Substance Reaction Severity Status Toradol Active Medications Flomax 0.4 mg oral capsule 0.4 mg=1 cap, PO, Daily, # 30 cap, 0 Refill(s) Start Date: 05/13/17 Status: Ordered morphine Sulfate 4 mg, 1 mL, Route: IVP, Drug form: SOLN, ONCE, Dosing Weight 43.636, kg, Priorit y: STAT, Start date: 05/13/17 5:59:00 CDT, Stop date: 05/13/17 5:59:00 CDT Notes: (Same as:MORPhine Sulfate) Start Date: 05/13/17 Stop Date: 05/13/17 Status: Completed NS (Bolus) IV 1,000 mL, 1000 ml/hr, Infuse Over: 1 hr, Route: IV, 1,000, Drug form: INJ, ONCE, Priority: STAT, Dosing Weight 43.636 kg, Start date: 05/13/17 5:53:00 CDT, Dura tion: 1 doses or times, Stop date: 05/13/17 5:53:00 CDT Start Date: 05/13/17 Stop Date: 05/13/17 Status: Completed NS (Bolus) IV 500 mL, 500 ml/hr, Infuse Over: 1 hr, Route: IV, 500, Drug form: INJ, ONCE, Prio rity: STAT, Dosing Weight 43.636 kg, Start date: 05/13/17 5:54:00 CDT, Duration: 1 doses or times, Stop date: 05/13/17 5:54:00 CDT Start Date: 05/13/17 Stop Date: 05/13/17 Status: Completed Zofran 4 mg, 2 mL, Route: IVP, Drug form: INJ, ONCE, Dosing Weight 43.636, kg, Priority : STAT, Start date: 05/13/17 5:59:00 CDT, Stop date: 05/13/17 5:59:00 CDT Notes: (Same as: Zofran) MEDICATION WASTE Product Size: 4 mgProduct Was kehinde: ___ mg Start Date: 05/13/17 Stop Date: 05/13/17 Status: Completed Results ELECTROLYTES Most recent to 1 oldest [Reference Range]: Sodium Lvl [135-145 140 mEq/L mEq/L] (05/13/17 6:25 AM) Potassium Lvl 3.1 mEq/L [3.5-5.1 mEq/L] *LOW* (05/13/17 6:25 AM) Chloride Lvl [95-109 105 mEq/L mEq/L] (05/13/17 6:25 AM) CO2 [24-32 mEq/L] 28 mEq/L (05/13/17 6:25 AM) AGAP [10.0-20.0 10.1 mEq/L mEq/L] (05/13/17 6:25 AM) CHEM PANEL Most recent to 1 oldest [Reference Range]: Creatinine Lvl 1.03 mg/dL [0.50-1.40 mg/dL] (05/13/17 6:25 AM) eGFR 73 mL/min/1.73m2 1 *NA* (05/13/17:25 AM) BUN [7-22 mg/dL] 13 mg/dL (05/13/17 6:25 AM) Glucose Lvl [70-99 156 mg/dL mg/dL] *HI* (05/13/17 6:25 AM) Calcium Lvl 9.5 mg/dL [8.5-10.5 mg/dL] (05/13/17 6:25 AM) 1Result Comment: The eGFR is calculated using the CKD-EPI formula. In most young, healthy individuals the eGFR will be >90 mL/min/1.73m2. The eGFR declines with age. An eGFR of 60-89 may be normal in some populations, particularly the elderly, for whom the CKD-EPI formula has not been extensively validated. Use of the eGFR is not recommended in the following populations: Individuals with unstable creatinine concentrations, including patients and those with serious co-morbid conditions. Patients with extremes in muscle mass or diet. The data above are obtained from the National Kidney Disease Education Program ( NKDEP) which additionally recommends that when the eGFR is used in patients with extremes of body mass index for purposes of drug dosing, the eGFR should be mul tiplied by the estimated BMI. URINE CHEM Most recent to 1 oldest [Reference Range]: U Preg [Negative] Negative (05/13/17 6:25 AM) URINE AND STOOL Most recent to 1 oldest [Reference Range]: UA Turbidity [Clear] Clear (05/13/17 6:25 AM) UA Color [Yellow] Yellow *NA* (05/13/17 6:25 AM) UA pH [5.0-8.0] 6.5 (05/13/17 6:25 AM) UA Spec Grav 1.020 [<=1.030] (05/13/17 6:25 AM) UA Glucose Negative [Negative] (05/13/17 6:25 AM) UA Blood [Negative] Small *ABN* (05/13/17 6:25 AM) UA Ketones Trace [Negative] *ABN* (05/13/17 6:25 AM) UA Protein Trace [Negative] *ABN* (05/13/17 6:25 AM) UA Urobilinogen 0.2 EU/dL [0.1-1.0 EU/dL] (05/13/17 6:25 AM) UA Bili [Negative] Small *ABN* (05/13/17 6:25 AM) UA Leuk Est Negative [Negative] (05/13/17 6:25 AM) UA Nitrite Negative [Negative] (05/13/17 6:25 AM) UA WBC [None Seen 3-5 /HPF /HPF] (05/13/17 6:25 AM) UA RBC [0-2 /HPF] 21-50 /HPF *ABN* (05/13/17 6:25 AM) UA Bacteria [None Few /HPF Seen /HPF] (05/13/17 6:25 AM) UA Sq Epi [Few /LPF] Moderate /LPF *ABN* (05/13/17 6:25 AM) Micro? Performed (05/13/17 6:25 AM) Immunizations No data available for this section Procedures Procedure Date Related Diagnosis Body Site Cholecystectomy Social History Social History Type Response Smoking Status Never smoker; Type: Cigarettes; Ready to change: No; Concerns about tobacco use in household: No; Exposure to Tobacco Smoke None; Cigarette Smoking Last 365 Days No; Reg Smoking Cessation Counseling No Assessment and Plan No data available for this section
--- OUTSIDE RECORDS SUMMARY | 2018-07-08 23:37 | XMS REPORT | Continuity of Care Document ---
Author Author Carla marlene [facility], [place] Interface Address Unknown Phone Unavailable Problems Problem Status Onset Date Classification Date Reported Comments Source Discharge Diagnosis: Epistaxis 06/07/2017 06/10/2017 [facility] Discharge Diagnosis: Hypertension 06/07/2017 06/10/2017 [facility] Discharge Diagnosis: Tachycardia 06/07/2017 06/10/2017 [facility] NOSE BLEED Active 06/06/2017 [facility] Discharge Diagnosis: Renal stone 05/13/2017 05/16/2017 [facility] LEFT FLANK PAIN Active 05/13/2017 [facility] Discharge Diagnosis: Contusion of hip, left 03/03/2017 03/06/2017 [facility] FALL Active 03/02/2017 [facility] Discharge Diagnosis: Acute right flank pain 02/19/2017 02/22/2017 [facility] BACK PAIN Active 02/16/2017 [facility] R FLANK PAIN Active 02/13/2017 [facility] Cholecystitis Resolved Problem 06/10/2017 [facility] Kidney stones Resolved Problem 06/10/2017 [facility] HTN (<span [id number]">Confirmed</span>) Resolved Problem 06/10/2017 [facility] Medications Medication Details Route Status Patient Instructions Ordering Provider Order Date Source Tylenol 975 mg, Route: PO, Drug form: TAB, ONCE, Dosing Weight 45.455, kg, Priority: STAT, Start date: 06/07/17 12:48:00 CDT, Stop date: 06/07/17 12:48:00 CDT Inactive 06/07/2017 [facility] Oxymetazoline hydrochloride 0.5 MG/ML Nasal [place] [Afrin] 2 spray, Route: NASAL, ONCE, Start date: 06/07/17 12:44:00 CDT, Stop date: 06/07/17 12:44:00 CDT Inactive 06/07/2017 [facility] NS (Bolus) IV 1,000 mL, 1,000 ml/hr, Infuse Over: 1 hr, Route: IV, ONCE, Priority: STAT, Dosing Weight 45.455 kg, Start date: 06/07/17 12:44:00 CDT, Duration: 1 doses or times, Stop date: 06/07/17 12:44:00 CDT Inactive 06/07/2017 [facility] Tamsulosin hydrochloride 0.4 MG Oral Capsule [Flomax] 0.4 mg=1 cap, PO, Daily, # 30 cap, 0 Refill(s) Active 05/13/2017 [facility] Zofran 4 mg, 2 mL, Route: IVP, Drug form: INJ, ONCE, Dosing Weight 43.636, kg, Priority: STAT, Start date: 05/13/17 5:59:00 CDT, Stop date: 05/13/17 5:59:00 CDTNotes: (Same as: Zofran) MEDICATION WASTE Product Size: 4 mg Product Wasted: ___ mg Inactive 05/13/2017 [facility] Morphine 4 mg, 1 mL, Route: IVP, Drug form: SOLN, ONCE, Dosing Weight 43.636, kg, Priority: STAT, Start date: 05/13/17 5:59:00 CDT, Stop date: 05/13/17 5:59:00 CDTNotes: (Same as:MORPhine Sulfate) Inactive 05/13/2017 [facility] NS (Bolus) IV 500 mL, 500 ml/hr, Infuse Over: 1 hr, Route: IV, 500, Drug form: INJ, ONCE, Priority: STAT, Dosing Weight 43.636 kg, Start date: 05/13/17 5:54:00 CDT, Duration: 1 doses or times, Stop date: 05/13/17 5:54:00 CDT Inactive 05/13/2017 [facility] NS (Bolus) IV 1,000 mL, 1000 ml/hr, Infuse Over: 1 hr, Route: IV, 1,000, Drug form: INJ, ONCE, Priority: STAT, Dosing Weight 43.636 kg, Start date: 05/13/17 5:53:00 CDT, Duration: 1 doses or times, Stop date: 05/03 09/18 5:53:00 CDT Inactive 05/13/2017 [facility] Acetaminophen 325 MG / Hydrocodone Bitartrate 5 MG Oral Tablet [Crucible 5/325] 1 tab, Route: PO, Drug Form: TAB, Dosing Weight 42.273, kg, ONCE, STAT, Start date: 03/03/17 13:19:00 CDT, Stop date: 03/03/17 13:19:00 CDTNotes: (Same as: Crucible 325/5) Do not exceed 4gm/day of acetaminophen. Inactive 03/03/2017 [facility] Cyclobenzaprine hydrochloride 10 MG Oral Tablet [Flexeril] 10 mg=1 tab, PO, TID, PRN for muscle pains, X 3 day, # 10 tab, 0 Refill(s) Active 02/20/2017 [facility] Acetaminophen 325 MG Oral Tablet [Tylenol] 975 mg=3 tab, PO, TID, PRN Pain, X 5 day, # 30 tab, 0 Refill(s) Active 02/20/2017 [facility] Acetaminophen 325 MG / Hydrocodone Bitartrate 5 MG Oral Tablet [Crucible 5/325] 2 tab, Route: PO, Drug Form: TAB, Dosing Weight 41.818, kg, ONCE, Start date: 02/19/17 19:44:00 CDT, Stop date: 02/19/17 19:44:00 CDTNotes: (Same as: Crucible 325/5) Do not exceed 4gm/day of acetaminophen. Inactive 02/20/2017 [facility] Flexeril 10 mg, 1 tab, Route: PO, Drug form: TAB, ONCE, Dosing Weight 41.818, kg, Priority: STAT, Start date: 02/19/17 19:44:00 CDT, Stop date: 02/19/17 19:44:00 CDTNotes: (Same As: Flexeril) Inactive 02/20/2017 [facility] Sodium Chloride 0.154 MEQ/ML Injectable Solution 1,000 mL, 1,000 ml/hr, Infuse Over: 1 hr, Route: IV, 1,000, Drug form: INJ, ONCE, Priority: STAT, Dosing Weight 41.818 kg, Start date: 02/19/17 19:44:00 CDT, Duration: 1 doses or times, Stop date: 02/19/17 19:44:00 CDT Inactive 02/20/2017 [facility] Saline Flush 0.9% 10 mL, Route: IVP, Drug Form: INJ, Dosing Weight 41.818, kg, PRN, PRN Line Flush, Start date: 02/19/17 19:08:00 CDT, Duration: 30 day, Stop date: 03/21/17 19:07:00 CDTNotes: (Same as: BD Posiflush) Inactive 02/20/2017 [facility] Tylenol 1,000 mg, Route: PO, Drug form: TAB, ONCE, Dosing Weight 42.455, kg, Priority: STAT, Start date: 02/16/17 13:19:00 CDT, Stop date: 02/16/17 13:19:00 CDT Inactive 02/16/2017 [facility] tramadol hydrochloride 50 MG Oral Tablet 50 mg=1 tab, PO, Q6H, PRN Pain, X 3 day, # 12 tab, 0 Refill(s) Active 02/16/2017 [facility] Omnipaque 300 injectable solution 100 mL, Route: IVP, Drug Form: SOLN, Dosing Weight 42.455, kg, ONCALL, GFR > 45 mL/min, STAT, Start date: 02/16/17 12:04:00 CDT, Duration: 1 doses or timesNotes: (Same as:Omnipaque 300). WASTE: F/P - Black; E - Municipal Trash Bin Inactive 02/16/2017 [facility] Sodium Chloride 0.154 MEQ/ML Injectable Solution 1,000 mL, 1,000 ml/hr, Infuse Over: 1 hr, Route: IV, 1,000, Drug form: INJ, ONCE, Priority: STAT, Dosing Weight 42.455 kg, Start date: 02/16/17 10:28:00 CDT, Duration: 1 doses or times, Stop date: 02/16/17 10:28:00 CDT Inactive 02/16/2017 [facility] Ondansetron 4 mg, 2 mL, Route: IVP, Drug form: INJ, ONCE, Dosing Weight 42.455, kg, Priority: STAT, Start date: 02/16/17 10:28:00 CDT, Stop date: 02/16/17 10:28:00 CDTNotes: (Same as: Zofran) MEDICATION WASTE Product Size: 4 mg Product Wasted: ___ mg Inactive 02/16/2017 [facility] Morphine 4 mg, 1 mL, Route: IVP, Drug form: INJ, ONCE, Dosing Weight 42.455, kg, Priority: STAT, Start date: 02/16/17 10:28:00 CDT, Stop date: 02/16/17 10:28:00 CDTNotes: (Same as:MORPhine Sulfate) Inactive 02/16/2017 [facility] Saline Flush 0.9% 10 mL, Route: IVP, Drug Form: INJ, Dosing Weight 42.455, kg, PRN, PRN Line Flush, Start date: 02/16/17 10:28:00 CDT, Duration: 30 day, Stop date: 03/18/17 10:27:00 CDTNotes: (Same as: BD Posiflush) Inactive 02/16/2017 [facility] Allergies, Adverse Reactions, Alerts Substance Category Reaction Severity Reaction type Status Date Reported Comments Source codeine Assertion Drug allergy Active [facility] Toradol Assertion Drug allergy Active [facility] Immunizations Immunization Date Given Site Status Last Updated Comments Source Results Order Name Results Value Reference Range Date Interpretation Comments Source CHEM PANEL eGFR 73 mL/min/1.73m2 05/13/2017 Result Comment: The eGFR is calculated using the [...] from the National Kidney Disease Education Program (NKDEP) which additionally recommends that when the eGFR is used in patients with extremes of body mass index for purposes of drug dosing, the eGFR should be multiplied by the estimated BMI. [facility] CHEM PANEL Glucose Lvl 156 mg/dL 70 - 99 05/13/2017 [facility] CHEM PANEL BUN 13 mg/dL 7 - 22 05/13/2017 [facility] CHEM PANEL Creatinine Lvl 1.03 mg/dL 0.50 - 1.40 05/13/2017 [facility] CHEM PANEL AGAP 10.1 meq/L 10.0 - 20.0 05/13/2017 [facility] CHEM PANEL Calcium Lvl 9.5 mg/dL 8.5 - 10.5 05/13/2017 [facility] CHEM PANEL Chloride Lvl 105 meq/L 95 - 109 05/13/2017 [facility] CHEM PANEL CO2 28 meq/L 24 - 32 05/13/2017 [facility] CHEM PANEL Potassium Lvl 3.1 meq/L 3.5 - 5.1 05/13/2017 [facility] CHEM PANEL Sodium Lvl 140 meq/L 135 - 145 05/13/2017 [facility] URINE AND STOOL UA Bacteria Few /HPF None Seen /HPF 05/13/2017 [facility] URINE AND STOOL UA WBC 3-5 /HPF None Seen /HPF 05/13/2017 [facility] URINE AND STOOL UA Sq Epi Moderate /LPF Few /LPF 05/13/2017 [facility] URINE AND STOOL UA RBC 21-50 /HPF 0 - 2 05/13/2017 [facility] URINE AND STOOL Micro? Performed (05/13/17 6:25 AM) 05/13/2017 [facility] URINE AND STOOL UA Nitrite Negative (05/13/17 6:25 AM) Negative 05/13/2017 [facility] URINE AND STOOL UA Bili Small *ABN* (05/13/17 6:25 AM) Negative 05/13/2017 [facility] URINE AND STOOL UA Ketones Trace *ABN* (05/13/17 6:25 AM) Negative 05/13/2017 [facility] URINE AND STOOL UA Urobilinogen 0.2 EU/dL 0.1 - 1.0 05/13/2017 [facility] URINE AND STOOL UA Blood Small *ABN* (05/13/17 6:25 AM) Negative 05/13/2017 [facility] URINE AND STOOL UA Leuk Est Negative (05/13/17 6:25 AM) Negative 05/13/2017 [facility] URINE AND STOOL UA Glucose Negative (05/13/17 6:25 AM) Negative 05/13/2017 [facility] URINE AND STOOL UA Protein Trace *ABN* (05/13/17 6:25 AM) Negative 05/13/2017 [facility] URINE AND STOOL UA pH 6.5 5.0 - 8.0 05/13/2017 [facility] URINE AND STOOL UA Spec Grav 1.020 <=1.030 05/13/2017 [facility] URINE AND STOOL UA Color Yellow *NA* (05/13/17 6:25 AM) Yellow 05/13/2017 [facility] URINE AND STOOL UA Turbidity Clear (05/13/17 6:25 AM) Clear 05/13/2017 [facility] URINE CHEM U Preg Negative (05/13/17 6:25 AM) Negative 05/13/2017 [facility] CHEM PANEL A/G Ratio 0.9 0.7 - 1.6 02/20/2017 [facility] CHEM PANEL Globulin 4.2 g/dL 2.7 - 4.2 02/20/2017 [facility] CHEM PANEL AGAP 10.9 meq/L 10.0 - 20.0 02/20/2017 [facility] CHEM PANEL B/C Ratio 12 6 - 25 02/20/2017 [facility] CHEM PANEL eGFR 73 mL/min/1.73m2 02/20/2017 Result Comment: The eGFR is calculated using the [...] from the National Kidney Disease Education Program (NKDEP) which additionally recommends that when the eGFR is used in patients with extremes of body mass index for purposes of drug dosing, the eGFR should be multiplied by the estimated BMI. [facility] CHEM PANEL CO2 28 meq/L 24 - 32 02/20/2017 [facility] CHEM PANEL Chloride Lvl 103 meq/L 95 - 109 02/20/2017 [facility] CHEM PANEL Potassium Lvl 3.9 meq/L 3.5 - 5.1 02/20/2017 [facility] CHEM PANEL Sodium Lvl 138 meq/L 135 - 145 02/20/2017 [facility] CHEM PANEL Creatinine Lvl 1.02 mg/dL 0.50 - 1.40 02/20/2017 [facility] CHEM PANEL Bili Total 0.1 mg/dL 0.2 - 1.3 02/20/2017 [facility] CHEM PANEL BUN 12 mg/dL 7 - 22 02/20/2017 [facility] CHEM PANEL Glucose Lvl 93 mg/dL 70 - 99 02/20/2017 [facility] CHEM PANEL ALT 16 unit/L 0 - 65 02/20/2017 [facility] CHEM PANEL Albumin Lvl 3.8 g/dL 3.5 - 5.0 02/20/2017 [facility] CHEM PANEL Total Protein 8.0 g/dL 6.4 - 8.4 02/20/2017 [facility] CHEM PANEL Calcium Lvl 9.1 mg/dL 8.5 - 10.5 02/20/2017 [facility] CHEM PANEL Alk Phos 94 unit/L 39 - 136 02/20/2017 [facility] CHEM PANEL AST 13 unit/L 0 - 37 02/20/2017 [facility] CHEM PANEL Lipase Lvl 505 unit/L 73 - 393 02/20/2017 [facility] ENDOCRINOLOGY S Preg Negative *NA* (02/19/17 7:28 PM) Negative 02/20/2017 [facility] HEMATOLOGY Platelet 425 K/CMM 133 - 450 02/20/2017 [facility] RDW 20.2 % 11.5 - 14.5 02/20/2017 [facility] MCHC 32.3 g/dL 32.0 - 36.0 02/20/2017 [facility] MPV 7.8 fL 7.4 - 10.4 02/20/2017 [facility] WBC 12.1 K/CMM 3.7 - 10.4 02/20/2017 [facility] Hct 32.6 % 36.0 - 48.0 02/20/2017 [facility] RBC 4.58 M/CMM 4.20 - 5.40 02/20/2017 [facility] Hgb 10.5 g/dL 12.0 - 16.0 02/20/2017 [facility] MCH 22.9 pg 27.0 - 31.0 02/20/2017 [facility] MCV 71.1 fL 80.0 - 98.0 02/20/2017 [facility] Microcyte 1+ *ABN* (02/19/17 7:28 PM) None Seen 02/20/2017 [facility] Eosinophils # 0.1 K/CMM 0.0 - 0.5 02/20/2017 [facility] Monocytes # 1.0 K/CMM 0.0 - 0.8 02/20/2017 [facility] Segs-Bands # 8.2 K/CMM 1.5 - 8.1 02/20/2017 [facility] HEMATOLOGY Basophils 0.4 % 0.0 - 1.0 02/20/2017 [facility] HEMATOLOGY Lymphocytes # 2.8 K/CMM 1.0 - 5.5 02/20/2017 [facility] HEMATOLOGY Lymphocytes 22.7 % 20.0 - 40.0 02/20/2017 [facility] HEMATOLOGY Monocytes 8.6 % 2.0 - 12.0 02/20/2017 [facility] HEMATOLOGY Segs 67.2 % 45.0 - 75.0 02/20/2017 [facility] HEMATOLOGY Eosinophils 1.1 % 0.0 - 4.0 02/20/2017 [facility] URINE AND STOOL UA Urobilinogen <=1.0 mg/dL 0.1 - 1.0 02/20/2017 [facility] URINE AND STOOL UA Leuk Est Negative (02/19/17 7:28 PM) Negative 02/20/2017 [facility] URINE AND STOOL UA WBC null 0 - 5 02/20/2017 [facility] URINE AND STOOL UA Sq Epi Occasional /LPF Few /LPF 02/20/2017 [facility] URINE AND STOOL UA RBC 3 /HPF 0 - 2 02/20/2017 [facility] URINE AND STOOL UA Nitrite Negative (02/19/17 7:28 PM) Negative 02/20/2017 [facility] URINE AND STOOL UA Blood Negative (02/19/17 7:28 PM) Negative 02/20/2017 [facility] URINE AND STOOL UA Glucose Negative mg/dL Negative mg/dL 02/20/2017 [facility] URINE AND STOOL UA Ketones Negative mg/dL Negative mg/dL 02/20/2017 [facility] URINE AND STOOL UA Mucus Few /LPF None Seen /LPF 02/20/2017 [facility] URINE AND STOOL UA Bili Negative *NA* (02/19/17 7:28 PM) Negative 02/20/2017 [facility] URINE AND STOOL UA pH 8.0 5.0 - 8.0 02/20/2017 [facility] URINE AND STOOL UA Turbidity Clear (02/19/17 7:28 PM) Clear 02/20/2017 [facility] URINE AND STOOL UA Spec Grav 1.009 <=1.030 02/20/2017 [facility] URINE AND STOOL UA Color Light Yellow *NA* (02/19/17 7:28 PM) Yellow 02/20/2017 [facility] URINE AND STOOL UA Protein Negative mg/dL Negative mg/dL 02/20/2017 [facility] Renal Stone CT Renal Stone CT Patient Name: KARO QUIÑONES : 1985; Age: 31 years y/o Female MR: [id number] Study: Renal Stone CT 02/19/2017 7:43 PM CDT Ordering Physician: Rosaline Hubbard MD Clinical Indication: - right flank pain; Comparison: 02/16/17 TECHNIQUE: Sequential trans-axial images were obtained with a multi-detector helical CT with IV contrast. Coronal and sagittal reconstructions were obtained. 100 mL of Omni intravenously were used for the exam. CT Radiation Dose DLP 387.21 mGy-cm FINDINGS: CT ABDOMEN: VISUALIZED LUNG BASES: demonstrate no acute pathology. ABDOMINAL ORGANS: The liver, spleen, pancreas, adrenals and kidneys demonstrate no acute pathology on this non-IV contrast examination. Bilateral renal stones noted 2-4mm in size without evidence of acute complication. Left likely renal cyst noted. STOMACH AND BOWEL: The stomach demonstrates no acute pathology. There is no evidence of bowel obstruction or free air. Moderate fecal retention noted. PERITONEUM AND RETROPERITONEUM: There is no lymphadenopathy appreciated. VASCULAR STRUCTURES: The abdominal aorta demonstrates no acute pathology . CT PELVIS: Visualized portions of the appendix are not inflamed, but entire appendix is not identified to completely rule out appendicitis. If clinical concern for appendicitis, close follow up recommended. PERITONEUM AND EXTRAPERITONEAL REGIONS: There is no pelvic sidewall lymphadenopathy. The inguinal regions demonstrate no acute pathology. BLADDER: The bladder demonstrate no acute pathology. OSSEOUS STRUCTURES: There are no focal suspicious lesions appreciated. IMPRESSION: Nephrolithiasis without evidence of acute complication. Moderate fecal retention noted. SL: RIK 02/19/2017 - - Read by: Fanta Mclean MD Dictated Date/time: 02/19/17 20:53 Electronically Signed by: Fanta Mclean MD 02/19/17 21:09 FINAL REPORT [facility] CHEM PANEL Lipase Lvl 477 unit/L 73 - 393 02/16/2017 [facility] CHEM PANEL eGFR 67 mL/min/1.73m2 02/16/2017 Result Comment: The eGFR is calculated using the [...] from the National Kidney Disease Education Program (NKDEP) which additionally recommends that when the eGFR is used in patients with extremes of body mass index for purposes of drug dosing, the eGFR should be multiplied by the estimated BMI. [facility] CHEM PANEL Bili Total 0.3 mg/dL 0.2 - 1.3 02/16/2017 [facility] CHEM PANEL ALT 19 unit/L 0 - 65 02/16/2017 [facility] CHEM PANEL Albumin Lvl 4.2 g/dL 3.5 - 5.0 02/16/2017 [facility] CHEM PANEL Alk Phos 109 unit/L 39 - 136 02/16/2017 [facility] CHEM PANEL AST 15 unit/L 0 - 37 02/16/2017 [facility] CHEM PANEL Total Protein 8.7 g/dL 6.4 - 8.4 02/16/2017 [facility] CHEM PANEL Sodium Lvl 138 meq/L 135 - 145 02/16/2017 [facility] CHEM PANEL Potassium Lvl 3.8 meq/L 3.5 - 5.1 02/16/2017 [facility] CHEM PANEL Creatinine Lvl 1.10 mg/dL 0.50 - 1.40 02/16/2017 [facility] CHEM PANEL BUN 10 mg/dL 7 - 22 02/16/2017 [facility] CHEM PANEL Glucose Lvl 59 mg/dL 70 - 99 02/16/2017 [facility] CHEM PANEL CO2 26 meq/L 24 - 32 02/16/2017 [facility] CHEM PANEL Calcium Lvl 9.2 mg/dL 8.5 - 10.5 02/16/2017 [facility] CHEM PANEL Chloride Lvl 104 meq/L 95 - 109 02/16/2017 [facility] CHEM PANEL B/C Ratio 9 6 - 25 02/16/2017 [facility] CHEM PANEL A/G Ratio 0.9 0.7 - 1.6 02/16/2017 [facility] CHEM PANEL Globulin 4.5 g/dL 2.7 - 4.2 02/16/2017 [facility] CHEM PANEL AGAP 11.8 meq/L 10.0 - 20.0 02/16/2017 [facility] ENDOCRINOLOGY S Preg Negative *NA* (02/16/17 11:08 AM) Negative 02/16/2017 [facility] HEMATOLOGY Segs-Bands # 8.6 K/CMM 1.5 - 8.1 02/16/2017 [facility] HEMATOLOGY Monocytes # 0.7 K/CMM 0.0 - 0.8 02/16/2017 [facility] HEMATOLOGY Lymphocytes # 1.8 K/CMM 1.0 - 5.5 02/16/2017 [facility] HEMATOLOGY Eosinophils # 0.1 K/CMM 0.0 - 0.5 02/16/2017 [facility] HEMATOLOGY Microcyte 1+ *ABN* (02/16/17 11:08 AM) None Seen 02/16/2017 [facility] HEMATOLOGY Basophils # 0.1 K/CMM 0.0 - 0.2 02/16/2017 [facility] HEMATOLOGY Basophils 0.5 % 0.0 - 1.0 02/16/2017 [facility] HEMATOLOGY Eosinophils 0.6 % 0.0 - 4.0 02/16/2017 [facility] HEMATOLOGY Monocytes 6.1 % 2.0 - 12.0 02/16/2017 [facility] Lymphocytes 15.7 % 20.0 - 40.0 02/16/2017 [facility] Segs 77.1 % 45.0 - 75.0 02/16/2017 [facility] Hct 36.7 % 36.0 - 48.0 02/16/2017 [facility] Platelet 466 K/CMM 133 - 450 02/16/2017 [facility] RDW 20.7 % 11.5 - 14.5 02/16/2017 [facility] MCHC 31.6 g/dL 32.0 - 36.0 02/16/2017 [facility] MCH 22.8 pg 27.0 - 31.0 02/16/2017 [facility] MCV 72.2 fL 80.0 - 98.0 02/16/2017 [facility] MPV 7.8 fL 7.4 - 10.4 02/16/2017 [facility] Hgb 11.6 g/dL 12.0 - 16.0 02/16/2017 [facility] RBC 5.07 M/CMM 4.20 - 5.40 02/16/2017 [facility] WBC 11.2 K/CMM 3.7 - 10.4 02/16/2017 [facility] URINE AND STOOL UA WBC 1 /HPF 0 - 5 02/16/2017 [facility] URINE AND STOOL UA Sq Epi Occasional /LPF Few /LPF 02/16/2017 [facility] URINE AND STOOL UA Leuk Est Negative (6/17/17 11:08 AM) Negative 02/16/2017 [facility] URINE AND STOOL UA Ketones Negative mg/dL Negative mg/dL 02/16/2017 [facility] URINE AND STOOL UA Glucose Negative mg/dL Negative mg/dL 02/16/2017 [facility] URINE AND STOOL UA Blood Negative (02/16/17 11:08 AM) Negative 02/16/2017 [facility] URINE AND STOOL UA Bili Negative *NA* (02/16/17 11:08 AM) Negative 02/16/2017 [facility] URINE AND STOOL UA Nitrite Negative (02/16/17 11:08 AM) Negative 02/16/2017 [facility] URINE AND STOOL UA Urobilinogen <=1.0 mg/dL 0.1 - 1.0 02/16/2017 [facility] URINE AND STOOL UA Trans Epi 1 /LPF <=0 /LPF 02/16/2017 [facility] URINE AND STOOL UA Mucus Few /LPF None Seen /LPF 02/16/2017 [facility] URINE AND STOOL UA Bacteria Occasional /HPF None Seen /HPF 02/16/2017 [facility] URINE AND STOOL UA RBC 1 /HPF 0 - 2 02/16/2017 [facility] URINE AND STOOL UA pH 7.0 5.0 - 8.0 02/16/2017 [facility] URINE AND STOOL UA Protein Negative mg/dL Negative mg/dL 02/16/2017 [facility] URINE AND STOOL UA Spec Grav 1.010 <=1.030 02/16/2017 [facility] URINE AND STOOL UA Turbidity Clear (02/16/17 11:08 AM) Clear 02/16/2017 [facility] URINE AND STOOL UA Color Light Yellow *NA* (02/16/17 11:08 AM) Yellow 02/16/2017 [facility] ED Abdomen/Pelvis IV contrast only CT ED Abdomen/Pelvis IV contrast only CT Clinical Indication: Abdominal pain, acute - right flank/abd pain. Comparison: None. TECHNIQUE: Helical imaging was performed from diaphragm through the symphysis with multiplanar reformations obtained. IV CONTRAST: 100 cc Omnipaque. GI CONTRAST: none CT Radiation Dose: DLP 212 mGy-cm FINDINGS: LOWER CHEST: The visualized lung bases are clear. LIVER: Unremarkable. GALLBLADDER: Status post cholecystectomy.. INTRAHEPATIC BILE DUCT AND EXTRAHEPATIC BILE DUCT: Unremarkable. PANCREAS: Unremarkable. SPLEEN: Unremarkable. ADRENALS: Unremarkable. KIDNEYS AND URETERS: There is a left renal cyst. Kidneys enhance symmetrically. There are numerous bilateral renal calculi. The largest in the left kidney measures about 4 mm. The largest in the right kidney measures about 3 mm. No significant hydronephrosis or hydroureter. No significant perinephric stranding. The lack of oral contrast limits evaluation of the hollow viscus structures. STOMACH: Unremarkable. BOWEL: The small bowel loops in the abdomen and pelvis appear unremarkable. The colonic loops in the abdomen and pelvis appear unremarkable. APPENDIX: Not well seen on the exam, cannot definitive exclude appendicitis PERITONEUM AND RETROPERITONEUM: No ascites or free air. There is no aortic aneurysm or dissection. LYMPH NODES: Unremarkable. PELVIS: No pelvic mass or adenopathy. BLADDER: The bladder is underdistended, which limits evaluation. OSSEOUS STRUCTURES: No acute abnormality seen. SOFT TISSUES: There is a low-density lesion in the right labia majora measuring about 1 cm. This is most suggestive of a Bartholin's gland cyst. Correlate clinically. Additional hyperdensity located along the left perineum (axial image 81), indeterminate. Correlate clinically with physical exam, consider ultrasound if indicated. IMPRESSION: 1. Multiple bilateral renal stones. No ureteral stone. No hydronephrosis. 2. Status post cholecystectomy. 3. Probable right-sided Bartholin's gland cyst within the right labia majora. Left hyperdensity within the perineum, in the posterior left labia majora. This also may reflect debris-filled cyst, however indeterminate. Consider dedicated ultrasound as indicated on a nonemergent basis. SL: [id number] 02/16/2017 - - Read by: Marvin Fuller MD Dictated Date/time: 02/16/17 12:27 Electronically Signed by: Marvin Fuller MD 02/16/17 12:35 FINAL REPORT [facility] Vital Signs Vital Sign Value Date Comments Source Heart Rate 103 06/07/2017 [facility] Respitory Rate 16 06/07/2017 [facility] Systolic (mm Hg) 158 06/07/2017 [facility] Diastolic (mm Hg) 74 06/07/2017 [facility] Temperature Oral (F) 98.5 F 06/07/2017 [facility] Weight 45.455 06/07/2017 [facility] BMI Calculated 18.33 06/07/2017 [facility] Height 157.48 cm 06/07/2017 [facility] Respitory Rate 16 06/07/2017 [facility] Heart Rate 117 06/07/2017 [facility] Systolic (mm Hg) 197 06/07/2017 [facility] Diastolic (mm Hg) 92 06/07/2017 [facility] Respitory Rate 18 05/13/2017 [facility] Systolic (mm Hg) 138 05/13/2017 [facility] Diastolic (mm Hg) 83 05/13/2017 [facility] Temperature Oral (F) 98.5 F 05/13/2017 [facility] Respitory Rate 18 05/13/2017 [facility] Systolic (mm Hg) 128 05/13/2017 [facility] Diastolic (mm Hg) 94 05/13/2017 [facility] Weight 43.636 05/13/2017 [facility] Respitory Rate 18 05/13/2017 [facility] Temperature Oral (F) 98.3 F 05/13/2017 [facility] Heart Rate 115 05/13/2017 [facility] Systolic (mm Hg) 151 05/13/2017 [facility] Diastolic (mm Hg) 94 05/13/2017 [facility] Height 157.48 cm 05/13/2017 [facility] BMI Calculated 17.6 05/13/2017 [facility] Systolic (mm Hg) 131 03/03/2017 [facility] Diastolic (mm Hg) 88 03/03/2017 [facility] Heart Rate 92 03/03/2017 [facility] Respitory Rate 16 03/03/2017 [facility] Temperature Oral (F) 98.4 F 03/03/2017 [facility] Height 157.48 cm 03/03/2017 [facility] Heart Rate 65 03/03/2017 [facility] Systolic (mm Hg) 142 03/03/2017 [facility] Diastolic (mm Hg) 88 03/03/2017 [facility] Respitory Rate 16 03/03/2017 [facility] BMI Calculated 17.05 03/03/2017 [facility] Weight 42.273 03/03/2017 [facility] Temperature Oral (F) 97.3 F 03/03/2017 [facility] Temperature Oral (F) 98.7 F 02/20/2017 [facility] Respitory Rate 16 02/20/2017 [facility] Systolic (mm Hg) 131 02/20/2017 [facility] Diastolic (mm Hg) 78 02/20/2017 [facility] Respitory Rate 16 02/20/2017 [facility] Systolic (mm Hg) 127 02/20/2017 [facility] Diastolic (mm Hg) 83 02/20/2017 [facility] Respitory Rate 14 02/20/2017 [facility] Systolic (mm Hg) 142 02/20/2017 [facility] Diastolic (mm Hg) 85 02/20/2017 [facility] BMI Calculated 16.86 02/19/2017 [facility] Height 157.48 cm 02/19/2017 [facility] Weight 41.818 02/19/2017 [facility] Heart Rate 101 02/19/2017 [facility] Temperature Oral (F) 99.4 F 02/19/2017 [facility] Temperature Oral (F) 98.1 F 02/16/2017 [facility] Respitory Rate 18 02/16/2017 [facility] Systolic (mm Hg) 121 02/16/2017 [facility] Diastolic (mm Hg) 82 02/16/2017 [facility] Respitory Rate 18 02/16/2017 [facility] Heart Rate 84 02/16/2017 [facility] Systolic (mm Hg) 123 02/16/2017 [facility] Diastolic (mm Hg) 91 02/16/2017 [facility] Heart Rate 83 02/16/2017 [facility] Temperature Oral (F) 97.9 F 02/16/2017 [facility] Respitory Rate 18 02/16/2017 [facility] Systolic (mm Hg) 123 02/16/2017 [facility] Diastolic (mm Hg) 91 02/16/2017 [facility] Temperature Oral (F) 97.7 F 02/16/2017 [facility] Heart Rate 111 02/16/2017 [facility] Weight 42.455 02/16/2017 [facility] BMI Calculated 17.12 02/16/2017 [facility] Height 157.48 cm 02/16/2017 [facility] Encounters Location Location Details Encounter Type Encounter Number Reason For Visit Attending Provider ADM Date DC Date Status Source [facility] Emergency [id number] Lenny Corona 02/16/2017 02/16/2017 [facility] Emergency [id number] Rosaline Hubbrad 02/19/2017 02/20/2017 [facility] Emergency [id number] Rosaline Hubbard 03/03/2017 03/03/2017 [facility] Emergency [id number] Shell Hannah 05/13/2017 05/13/2017 [facility] Emergency [id number] Kale Carrasquillo 06/07/2017 06/07/2017 [facility] Procedures Procedure Code Date Perfomer Comments Source Cholecystectomy [id number] [facility] Cholecystectomy [id number] [facility]
--- OUTSIDE RECORDS SUMMARY | 2018-07-08 23:37 | XMS REPORT ---
Author Author [facility] Address Unknown Phone Unavailable Care Team Providers Care Mounter Sousaphones Name Role Phone UNKNOWN, REFFERING PP Unavailable LUH URRUTIA Unavailable Unavailable Maggie GOSS Unavailable Unavailable MERGESGARRICK Unavailable Unavailable Payers Payer Name Policy Type Policy Number Effective Date Expiration Date Problems This patient has no known problems. Allergies, Adverse Reactions, Alerts Allergy Name Allergy Type Status Severity Reaction(s) Onset Date Inactive Date Treating Clinician Comments ketorolac DA Active SV 2018-07-08 00:00:00 ketorolac DA Active SV 2018-05-21 00:00:00 ketorolac DA Active SV 2018-05-14 00:00:00 ketorolac DA Active SV 2018-02-12 00:00:00 Medications This patient has no known medications. Results Test Description Test Time Test Comments Text Results Atomic Results Result Comments [id number]& PELVIS W/O CONTRAST 2017-05-16 04:11:15 AFTER HOURS SERVICE ON: 05/16/2017 4:11 AMCT Scan of the Abdomen and Pelvis Without ContrastLocation Code [id number]: Flank painTechnique: Axial and reconstructed coronal scans were performed on [facility] scanner pre oral and IV contrast. Study is limited secondary tolack of oral and IV contrast. One or more of the following dose reduction techniques were used:Automated exposure control, adjustment of the mA and/or kV according topatient size, and/or utilization of iterative reconstruction technique.Findings: Gallbladder is absent. Liver, pancreas and spleen are unremarkable.Adrenal glands are symmetric. There are at least 2 hypodense lesions inthe left kidney including a 1.3 cm hypodensity in the lower pole whichis mildly complex. There are several nonobstructing renal calculimeasuring up to 4 mm and the left kidney endotracheal 3 mm in the rightkidney. 3 are seen in the right kidney and 6 and the left kidney. Thereis no hydronephrosis in either kidney. Latter is incompletely filled.Uterus is pr esent. No pelvic free fluid or adnexal masses seen.Large amount of stool seen retained in the colon. There is no bowelprojection or free air. The appendix is not visualized. There are noinflammatory changes.Impression:1. Several bilateral nonobstructing renal calculi.2. Left renal cystic lesions which can be further evaluated withultrasound.3. Nonvisualization of the appendix. No inflammatory changes.4. Cholecystectomy. Amylase 2017-05-16 04:01:00 Amylase (test code=NICOLETTE) 42 U/L 28-100 Comprehensive Metabolic [id number] 03:59:00* Test Item Value Reference Range Comments Sodium (test code=NA) 142 mmol/L 135-145 Potassium (test code=K) 3.7 mmol/L 3.5-5.1 Chloride (test code=CL) 107 mmol/L 98-105 Carbon Dioxide (test code=CO2) 22 mmol/L 22-29 Anion Gap (test code=AGAP) 13 mmol/L 7-16 Glucose (test code=GLU) 114 mg/dL 70-115 Blood Urea Nitrogen (test code=BUN) 10 mg/dL 6-20 Creatinine (test code=CREAT) 1.2 mg/dL 0.5-0.9 BUN/Creatinine Ratio (test code=BCRATIO) 8.3 Calcium (test code=CA) 9.4 mg/dL 8.3-10.5 Prot Total (test code=TP) 7.5 g/dL 6.4-8.3 Albumin (test code=ALB) 4.5 g/dL 3.5-5.2 A/G Ratio (test code=AGRATIO) 1.5 Ratio Globulin (test code=GLOB) 3.0 2.9-3.1 Bili Total (test code=TBIL) 0.1 mg/dL 0.1-0.9 Alk Phos (test code=APHOS) 88 U/L 35-104 AST (test code=AST) 20 U/L 1-32 ALT (test code=ALT) 9 U/L 1-33 Estimated GFR (test code=GFR) 56 mL/min/1.73m2 eGFR (estimated Glomerular Filtration Rate) is an estimated value,calculated from the patient's serum creatinine using the MDRD equation.It is NOT the patient's actual GFR. The eGFR provides a more clinicallyuseful measure of kidney disease than serum creatinine alone.This calculation takes sex and race into account, if the informationis provided. If the race is not provided, and the patient isAfrican-Pakistani, multiply by 1.212. If sex is not provided, and thepatient is female, multiply by 0.742. Results for patients <18 years ofage have not been validated by the MDRD study and should be interpretedwith caution.eGFR Result Interpretation:eGFR > or=60 is in the Normal RangeeGFR < 60 may mean kidney diseaseeGFR < 15 may mean kidney failureRanges recommended by the National Kidney Foundat ion,http://nkdep.nih.gov [id number] 03:58:00* Test Item Value Reference Range Comments Lipase (test code=LIP) 76 U/L 13-60 BHCG, Serum, [id number] 03:47:00* Test Item Value Reference Range Comments Preg Qual [Se] (test code=BSHCG) Negative Negative Urinalysis [id number] 03:44:00* Test Item Value Reference Range Comments Color (test code=COLOR) Light yellow Yellow,Straw,Pl yellow Clarity (test code=CLAR) Clear Clear Specific [place] (test code=SPGR) 1.020 1.001-1.035 pH (test code=PH) 7.0 5.0-9.0 Ketone (test code=KET) Negative Negative Glucose (test code=GLUCUR) Negative Negative Protein (test code=PROT) Trace Negative Bilirubin (test code=BILI) Negative Negative Occult Blood (test code=UDOB) Large Negative Urobilinogen (test code=UROB) 0.2 0.2-1.0 Nitrite (test code=NIT) Negative Negative Leuk Esterase (test code=LEUK) Negative Negative Micros Exam (test code=MEXAM) Indicated Epithelial Cells (test code=EPI) None /HPF 0-30 WBC, Urine (test code=UWBC) 0-5 /LPF 0-5 RBC, Urine (test code=URBC) 0-3 /LPF 0-5 Amorph Deposit (test code=AMORD) Few /HPF Bacteria (test code=BACT) None /LPF Urinalysis [id number] 20:41:00* Test Item Value Reference Range Comments Color (test code=COLOR) Yellow Yellow,Straw,Pl yellow Clarity (test code=CLAR) Clear Clear Specific [place] (test code=SPGR) 1.021 1.001-1.035 pH (test code=PH) 6.5 5.0-9.0 Ketone (test code=KET) Negative mg/dL Negative Glucose (test code=GLUCUR) Negative mg/dL Negative Protein (test code=PROT) Negative mg/dL Negative Bilirubin (test code=BILI) Negative mg/dL Negative Occult Blood (test code=UDOB) Negative Negative Urobilinogen (test code=UROB) 0.2 mg/dL 0.2-1.0 Nitrite (test code=NIT) Negative Negative Leuk Esterase (test code=LEUK) Negative Negative Micros Exam (test code=MEXAM) Not indicated BHCG, Urine, [id number] 20:33:00* Test Item Value Reference Range Comments Preg Qual [Ur] (test code=HUHCG) Negative Negative CBC with [id number] 22:17:00* Test Item Value Reference Range Comments WBC (test code=WBC) 8.4 K/cumm 4.4-10.5 RBC (test code=RBC) 4.29 M/cumm 3.75-5.20 Hemoglobin (test code=HGB) 10.0 gm/dL 12.2-14.8 Hematocrit (test code=HCT) 32.7 % 36.5-44.4 MCV (test code=MCV) 76.3 fL 80-100 MCH (test code=MCH) 23.3 pg 27.0-32.5 MCHC (test code=MCHC) 30.5 g/dL 32.0-37.5 RDW (test code=RDW) 17.7 % 11.5-14.5 Platelet Count (test code=PLTCT) 564 K/cumm 140-440 MPV (test code=MPV) 7.9 fL Diff Method (test code=DIFFM) Auto Neutrophil (test code=NEUT) 69.1 % 36-70 Lymphocyte (test code=LYMPH) 25.3 % 12-44 Monocyte (test code=MONO) 4.7 % 0-11 Eosinophil (test code=EOS) 0.5 % 0-7 Basophil (test code=BASO) 0.4 % 0-2 Neutro Abs (test code=ANEUT) 5.8 K/cumm 1.6-7.4 Lymph Abs (test code=ALYMPH) 2.1 K/cumm 0.5-4.6 [place] Abs (test code=AMONO) 0.4 K/cumm 0.0-1.2 Eos Abs (test code=AEOS) 0.04 K/cumm 0.00-0.74 Baso Abs (test code=ABASO) 0.0 K/cumm 0.00-0.21 Microcytosis (test code=MICRO) Slight Hypochromic (test code=HYPO) Slight [id number] 22:13:00* Test Item Value Reference Range Comments Lipase (test code=LIP) 42 U/L 13-60 Comprehensive Metabolic [id number] 22:13:00* Test Item Value Reference Range Comments Sodium (test code=NA) 138 mmol/L 135-145 Potassium (test code=K) 4.0 mmol/L 3.5-5.1 Chloride (test code=CL) 103 mmol/L 98-105 Carbon Dioxide (test code=CO2) 24 mmol/L 22-29 Glucose (test code=GLU) 102 mg/dL 70-115 Blood Urea Nitrogen (test code=BUN) 11 mg/dL 6-20 Creatinine (test code=CREAT) 0.8 mg/dL 0.5-0.9 Calcium (test code=CA) 9.3 mg/dL 8.3-10.5 Prot Total (test code=TP) 7.2 g/dL 6.4-8.3 Albumin (test code=ALB) 4.3 g/dL 3.5-5.2 A/G Ratio (test code=AGRATIO) 1.5 Ratio Globulin (test code=GLOB) 2.9 2.9-3.1 Bili Total (test code=TBIL) <0.1 mg/dL 0.1-0.9 Alk Phos (test code=APHOS) 91 U/L 35-104 AST (test code=AST) 14 U/L 1-32 ALT (test code=ALT) 7 U/L 1-33 BUN/Creatinine Ratio (test code=BCRATIO) 13.8 Anion Gap (test code=AGAP) 11 mmol/L 7-16 Estimated GFR (test code=GFR) >60 mL/min/1.73m2 eGFR (estimated Glomerular Filtration Rate) is an estimated value,calculated from the patient's serum creatinine using the MDRD equation.It is NOT the patient's actual GFR. The eGFR provides a more clinicallyuseful measure of kidney disease than serum creatinine alone.This calculation takes sex and race into account, if the informationis provided. If the race is not provided, and the patient isAfrican-Pakistani, multiply by 1.212. If sex is not provided, and thepatient is female, multiply by 0.742. Results for patients <18 years ofage have not been validated by the MDRD study and should be interpretedwith caution.eGFR Result Interpretation:eGFR > or=60 is in the Normal RangeeGFR < 60 may mean kidney diseaseeGFR < 15 may mean kidney failureRanges recommended by the National Kidney Foundat ion,http://nkdep.nih.gov Urinalysis [id number] 21:43:00* Test Item Value Reference Range Comments Color (test code=COLOR) Yellow Yellow,Straw,Pl yellow Clarity (test code=CLAR) Clear Clear Specific [place] (test code=SPGR) 1.010 1.001-1.035 pH (test code=PH) 6.5 5.0-9.0 Ketone (test code=KET) Negative mg/dL Negative Glucose (test code=GLUCUR) Negative mg/dL Negative Protein (test code=PROT) Negative mg/dL Negative Bilirubin (test code=BILI) Negative mg/dL Negative Occult Blood (test code=UDOB) Negative Negative Urobilinogen (test code=UROB) 0.2 mg/dL 0.2-1.0 Nitrite (test code=NIT) Negative Negative Leuk Esterase (test code=LEUK) Moderate Negative Micros Exam (test code=MEXAM) Indicated Epithelial Cells (test code=EPI) 0-2 /LPF 0-30 WBC, Urine (test code=UWBC) 0-5 /HPF 0-5 RBC, Urine (test code=URBC) 0-3 /HPF 0-5 Bacteria (test code=BACT) Few /HPF [id number] 17:05:00* Test Item Value Reference Range Comments D-DIMER QUANTITATIVE (BEAKER) (test nrcv=307) 0.24 MG/L FEU <0.50 Intended Use: The D-Dimer Assay can be used to aid in the diagnosis of Deep Vein Thrombosis (DVT) and Pulmonary Embolism Disease (PED).In patients with low pre- test probability, various studies concerning STA Liatest D-dimer test have repor kehinde that with a cutoff value of 0.50 MG/L FEU, the Negative Predictive Value (FIRE MEDIC V) regarding the exclusion of thrombosis is within 95-100% range.COMPREHENSIVE METABOLIC [id number] 17:01:00* Test Item Value Reference Range Comments TOTAL PROTEIN (BEAKER) (test tvws=600) 7.5 gm/dL 6.0-8.5 ALBUMIN (BEAKER) (test hhol=1517) 4.2 g/dL 3.5-5.0 ALKALINE PHOSPHATASE (BEAKER) (test oiwi=649) 68 U/L 30-115 BILIRUBIN TOTAL (BEAKER) (test jfqp=621) 0.4 mg/dL 0.1-1.2 SODIUM (BEAKER) (test tuuz=879) 137 meq/L 135-148 POTASSIUM (BEAKER) (test bpvb=453) 3.8 meq/L 3.6-5.5 CHLORIDE (BEAKER) (test cdls=305) 102 meq/L 98-106 CO2 (BEAKER) (test envp=555) 27 meq/L 24-32 BLOOD UREA NITROGEN (BEAKER) (test satw=265) 14 mg/dL 10-26 CREATININE (BEAKER) (test hhxh=737) 0.77 mg/dL 0.50-1.20 GLUCOSE RANDOM (BEAKER) (test dcdp=685) 72 mg/dL 70-110 CALCIUM (BEAKER) (test ehvs=654) 8.6 mg/dL 8.5-10.5 AST (SGOT) (BEAKER) (test jirm=252) 18 U/L 5-40 ALT (SGPT) (BEAKER) (test fnzt=693) 17 U/L 5-50 EGFR (BEAKER) (test dgrp=0701) 87 mL/min/1.73 sq m ESTIMATED GFR IS NOT ACCURATE CREATININE CLEARANCE IN PREDICTING GLOMERULAR FILTRATION RATE. ESTIMATED GFR IS NOT APPLICABLE FOR DIALYSIS PATIENTS. HCG, SERUM, [id number] 16:57:00* Test Item Value Reference Range Comments TEST SERUM (BEAKER) (test gjvo=794) Negative POCT-TROPONIN [id number] 16:56:00* Test Item Value Reference Range Comments POC-TROPONIN I (BEAKER) (test uczd=5919) 0.00 ng/mL 0.00-0.10 TESTED AT [facility] [address] [facility] [place] [address] CBC (HEMOGRAM ONLY)2017-03-28 16:49:00* Test Item Value Reference Range Comments WHITE BLOOD CELL COUNT (BEAKER) (test hskw=417) 6.3 K/ L 4.0-10.0 RED BLOOD CELL COUNT (BEAKER) (test imqz=339) 4.20 M/ L 4.00-5.00 HEMOGLOBIN (BEAKER) (test raxf=919) 9.8 GM/DL 12.0-15.0 HEMATOCRIT (BEAKER) (test ltvx=554) 31.6 % 36.0-45.0 MEAN CORPUSCULAR VOLUME (BEAKER) (test hpfy=330) 75.2 fL 82.0-99.0 MEAN CORPUSCULAR HEMOGLOBIN (BEAKER) (test vvim=418) 23.3 pg 27.0-33.0 MEAN CORPUSCULAR HEMOGLOBIN CONC (BEAKER) (test isge=720) 31.0 GM/DL 32.0-36.0 RED CELL DISTRIBUTION WIDTH (BEAKER) (test jsyj=118) 17.4 % 12.0-15.0 PLATELET COUNT (BEAKER) (test qsvp=846) 510 K/CU MM 150-430 MEAN PLATELET VOLUME (BEAKER) (test xuat=720) 9.2 fL 6.5-10.5 NUCLEATED RED BLOOD CELLS (BEAKER) (test geeg=966) 0 /100 WBC 0-0
--- OUTSIDE RECORDS SUMMARY | 2018-07-08 23:37 | XMS REPORT | Summary of Care ---
Author Author [facility] Organization [facility] Address Unknown Phone Unavailable Encounter ADARSH Regalado(SOL) [id number] Date(s): 02/19/17 - 02/19/17 [facility] [address] [place] [address]- [phone] Discharge Diagnosis: Acute right flank pain Discharge Disposition: Home or Self Care Attending Physician: Rosaline Hubbard MD Vital Signs 1 2 3 Most recent to oldest [Reference Range]: 157.48 cm (02/19/17 5:47 PM) Height 98.7 DegF (02/19/17 9:30 PM) 99.4 DegF *HI* (02/19/17 5:47 PM) Temperature Oral [96.4-99.1 DegF] 131/78 mmHg (02/19/17 9:30 PM) 127/83 mmHg (02/19/17 9:00 PM) 142/85 mmHg *HI* (02/19/17 8:30 PM) Blood Pressure [90-140/60-90 mmHg] 16 BRMIN (02/19/17 9:30 PM) 16 BRMIN (02/19/17 9:00 PM) 14 BRMIN (02/19/17 8:30 PM) Respiratory Rate [14-20 BRMIN] 101 bpm *HI* (02/19/17 5:47 PM) Peripheral Pulse Rate [60-100 bpm] 41.818 kg (02/19/17 5:47 PM) Weight 16.86 m2 (02/19/17 5:47 PM) Body Mass Index Problem List No data available for this section Allergies, Adverse Reactions, Alerts Substance Reaction Severity Status codeine Active Toradol Active Medications Flexeril 10 mg, 1 tab, Route: PO, Drug form: TAB, ONCE, Dosing Weight 41.818, kg, Priorit y: STAT, Start date: 02/19/17 19:44:00 CDT, Stop date: 02/19/17 19:44:00 CDT Notes: (Same As: Flexeril) Start Date: 02/19/17 Stop Date: 02/19/17 Status: Completed Flexeril 10 mg oral tablet 10 mg=1 tab, PO, TID, PRN for muscle pains, X 3 day, # 10 tab, 0 Refill(s) Start Date: 02/19/17 Stop Date: 02/22/17 Status: Ordered [place] 5/325 oral tablet 2 tab, Route: PO, Drug Form: TAB, Dosing Weight 41.818, kg, ONCE, Start date: 19:44:00 CDT, Stop date: 02/19/17 19:44:00 CDT Notes: (Same as: [place] 325/5) Do not exceed 4gm/day of acetaminophen. Start Date: 02/19/17 Stop Date: 02/19/17 Status: Completed NS (Bolus) IV 1,000 mL, 1,000 ml/hr, Infuse Over: 1 hr, Route: IV, 1,000, Drug form: INJ, ONCE , Priority: STAT, Dosing Weight 41.818 kg, Start date: 02/19/17 19:44:00 CDT, Du ration: 1 doses or times, Stop date: 02/19/17 19:44:00 CDT Start Date: 02/19/17 Stop Date: 02/19/17 Status: Completed Saline Flush 0.9% 10 mL, Route: IVP, Drug Form: INJ, Dosing Weight 41.818, kg, PRN, PRN Line Flush , Start date: 02/19/17 19:08:00 CDT, Duration: 30 day, Stop date: 03/21/17 19:07 :00 CDT Notes: (Same as: BD Posiflush) Start Date: 02/19/17 Stop Date: 02/19/17 Status: Discontinued Tylenol 325 mg oral tablet 975 mg=3 tab, PO, TID, PRN Pain, X 5 day, # 30 tab, 0 Refill(s) Start Date: 02/19/17 Stop Date: 02/24/17 Status: Ordered Results ELECTROLYTES Most recent to 1 oldest [Reference Range]: Sodium Lvl [135-145 138 mEq/L mEq/L] (02/19/17 7: PM) Potassium Lvl 3.9 mEq/L [3.5-5.1 mEq/L] (02/19/17: PM) Chloride Lvl [95-109 103 mEq/L mEq/L] (02/19/17: PM) CO2 [24-32 mEq/L] 28 mEq/L (02/19/17: PM) AGAP [10.0-20.0 10.9 mEq/L mEq/L] (02/19/17: PM) CHEM PANEL Most recent to 1 oldest [Reference Range]: Creatinine Lvl 1.02 mg/dL [0.50-1.40 mg/dL] (02/19/17: PM) eGFR 73 mL/min/1.73m2 1 *NA* (02/19/17: PM) BUN [7-22 mg/dL] 12 mg/dL (02/19/17: PM) B/C Ratio [6-25] 12 (02/19/17: PM) Glucose Lvl [70-99 93 mg/dL mg/dL] (02/19/17: PM) Total Protein 8.0 g/dL [6.4-8.4 g/dL] (02/19/17: PM) Albumin Lvl [3.5-5.0 3.8 g/dL g/dL] (02/19/17: PM) Globulin [2.7-4.2 4.2 g/dL g/dL] (02/19/17: PM) A/G Ratio [0.7-1.6] 0.9 (02/19/17: PM) Calcium Lvl 9.1 mg/dL [8.5-10.5 mg/dL] (02/19/17: PM) ALT [0-65 unit/L] 16 unit/L (02/19/17: PM) AST [0-37 unit/L] 13 unit/L (02/19/17 7:28 PM) Alk Phos [39-136 94 unit/L unit/L] (02/19/17:28 PM) Bili Total [0.2-1.3 0.1 mg/dL mg/dL] *LOW* (02/19/17 7:28 PM) Lipase Lvl [73-393 505 unit/L unit/L] *HI* (02/19/17 7:28 PM) 1Result Comment: The eGFR is calculated using [...] be mul tiplied by the estimated BMI. ENDOCRINOLOGY Most recent to 1 oldest [Reference Range]: S Preg [Negative] Negative *NA* (02/19/17 7:28 PM) URINE AND STOOL Most recent to 1 oldest [Reference Range]: UA Turbidity [Clear] Clear (02/19/17 7:28 PM) UA Color [Yellow] Light Yellow *NA* (02/19/17 7:28 PM) UA pH [5.0-8.0] 8.0 (02/19/17 7:28 PM) UA Spec Grav 1.009 [<=1.030] (02/19/17 7:28 PM) UA Glucose [Negative Negative mg/dL mg/dL] *NA* (02/19/17 7:28 PM) UA Blood [Negative] Negative (02/19/17 7:28 PM) UA Ketones [Negative Negative mg/dL mg/dL] *NA* (02/19/17 7:28 PM) UA Protein [Negative Negative mg/dL mg/dL] (02/19/17 7:28 PM) UA Urobilinogen <=1.0 mg/dL [0.1-1.0 mg/dL] *NA* (02/19/17 7:28 PM) UA Bili [Negative] Negative *NA* (02/19/17 7:28 PM) UA Leuk Est Negative [Negative] (02/19/17 7:28 PM) UA Nitrite Negative [Negative] (02/19/17 7:28 PM) UA WBC [0-5 /HPF] <1 /HPF (02/19/17 7:28 PM) UA RBC [0-2 /HPF] 3 /HPF *HI* (02/19/17 7:28 PM) UA Sq Epi [Few /LPF] Occasional /LPF *NA* (02/19/17 7:28 PM) UA Mucus [None Seen Few /LPF /LPF] *NA* (02/19/17 7:28 PM) HEMATOLOGY Most recent to 1 oldest [Reference Range]: WBC [3.7-10.4 K/CMM] 12.1 K/CMM *HI* (02/19/17 7:28 PM) RBC [4.20-5.40 4.58 M/CMM M/CMM] (02/19/17 7:28 PM) Hgb [12.0-16.0 g/dL] 10.5 g/dL *LOW* (02/19/17 7:28 PM) Hct [36.0-48.0 %] 32.6 % *LOW* (02/19/17 7:28 PM) MCV [80.0-98.0 fL] 71.1 fL *LOW* (02/19/17 7:28 PM) MCH [27.0-31.0 pg] 22.9 pg *LOW* (02/19/17 7:28 PM) MCHC [32.0-36.0 32.3 g/dL g/dL] (02/19/17 7:28 PM) RDW [11.5-14.5 %] 20.2 % *HI* (02/19/17 7:28 PM) Platelet [133-450 425 K/CMM K/CMM] (02/19/17 7:28 PM) MPV [7.4-10.4 fL] 7.8 fL (02/19/17 7:28 PM) Segs [45.0-75.0 %] 67.2 % (02/19/17 7:28 PM) Lymphocytes 22.7 % [20.0-40.0 %] (02/19/17 7:28 PM) Monocytes [2.0-12.0 8.6 % %] (02/19/17 7:28 PM) Eosinophils [0.0-4.0 1.1 % %] (02/19/17 7:28 PM) Basophils [0.0-1.0 0.4 % %] (02/19/17 7:28 PM) Segs-Bands # 8.2 K/CMM [1.5-8.1 K/CMM] *HI* (02/19/17 7:28 PM) Lymphocytes # 2.8 K/CMM [1.0-5.5 K/CMM] (02/19/17 7:28 PM) Monocytes # [0.0-0.8 1.0 K/CMM K/CMM] *HI* (02/19/17 7:28 PM) Eosinophils # 0.1 K/CMM [0.0-0.5 K/CMM] (02/19/17 7:28 PM) Microcyte [None 1+ Seen] *ABN* (02/19/17 7:28 PM) Immunizations No data available for this section Procedures No data available for this section Social History Social History Type Response Smoking Status Never smoker; Type: Cigarettes; Ready to change: No; Concerns about tobacco use in household: No; Exposure to Tobacco Smoke None; Cigarette Smoking Last 365 Days No; Reg Smoking Cessation Counseling No Assessment and Plan No data available for this section
--- OUTSIDE RECORDS SUMMARY | 2018-07-08 23:37 | XMS REPORT | Summary of Care ---
Author Author [facility] Organization [facility] Address Unknown Phone Unavailable Encounter ADARSH Regalado(SOL) [id number] Date(s): 03/03/17 - 03/03/17 [facility] [address] [place], [place] [address]- [phone] Discharge Diagnosis: Contusion of hip, left Discharge Disposition: Home or Self Care Attending Physician: Rosaline Hubbard MD Vital Signs Most recent to 1 2 oldest [Reference Range]: Height 157.48 cm (03/03/17 12:23 PM) Temperature Oral 98.4 DegF 97.3 DegF [96.4-99.1 DegF] (03/03/17 1:45 PM) (03/03/17 12:23 PM) Blood Pressure 131/88 mmHg 142/88 mmHg [90-140/60-90 mmHg] (03/03/17 1:45 PM) *HI* (03/03/17 12:23 PM) Respiratory Rate 16 BRMIN 16 BRMIN [14-20 BRMIN] (03/03/17 1:45 PM) (03/03/17 12:23 PM) Peripheral Pulse 92 bpm 65 bpm Rate [60-100 bpm] (03/03/17 1:45 PM) (03/03/17 12:23 PM) Weight 42.273 kg (03/03/17 12:23 PM) Body Mass Index 17.05 m2 (03/03/17 12:23 PM) Problem List Condition Effective Dates Status Health Status Informant Cholecystitis(Confir Resolved med) Kidney Resolved stones(Confirmed) Allergies, Adverse Reactions, Alerts Substance Reaction Severity Status codeine Active Toradol Active Medications [place] 5/325 oral tablet 1 tab, Route: PO, Drug Form: TAB, Dosing Weight 42.273, kg, ONCE, STAT, Start da te: 03/03/17 13:19:00 CDT, Stop date: 03/03/17 13:19:00 CDT Notes: (Same as: [place] 325/5) Do not exceed 4gm/day of acetaminophen. Start Date: 03/03/17 Stop Date: 03/03/17 Status: Completed Results No data available for [...]
[2018-07-09] MEDS ORDERED: KETOROLAC TROMETHAMINE 30 MG/ML VIAL IV STA
[2018-07-09] MEDS ORDERED: ONDANSETRON HCL INJ 2 MG/ML VIAL IV STA
[2018-07-09 00:46] LABS: BASOPHILS # (AUTO) 0.1 (0.0-0.1); BASOPHILS % 0.3 % (0.0-1.0); EOSINOPHILS # (AUTO) 0.1 (0.0-0.4); EOSINOPHILS % 0.7 % (0.0-6.0); HEMOGLOBIN 10.3 g/dL (12.0-16.0); LYMPHOCYTES # (AUTO) 2.6 (1.0-3.2); LYMPHOCYTES % 14.3 % (18.0-39.1); MEAN CORPUSCULAR HEMOGLOBIN 21.7 pg (28-32); MEAN CORPUSCULAR HGB CONC 29.4 g/dL (31-35); MEAN CORPUSCULAR VOLUME 73.7 fL (81-99); MONOCYTES # (AUTO) 0.8 (0.2-0.8); MONOCYTES % 4.2 % (4.4-11.3); NEUTROPHILS # (AUTO) 14.5 (2.1-6.9); NEUTROPHILS % 80.1 % (38.7-80.0); PLATELET COUNT 673 x10e3/uL (140-360); RED BLOOD COUNT 4.75 x10e6/uL (3.6-5.1); RED CELL DISTRIBUTION WIDTH 23.3 % (11.7-14.4)
[2018-07-09 01:07] LABS: ALANINE AMINOTRANSFERASE 9 IU/L (0-55); ALBUMIN 4.3 g/dL (3.5-5.0); ALKALINE PHOSPHATASE 106 IU/L (40-150); ANION GAP 17.3 mmol/L (8-16); BLOOD UREA NITROGEN 11 mg/dL (7-26); BUN/CREATININE RATIO 12 (6-25); CALCIUM 9.6 mg/dL (8.4-10.2); CARBON DIOXIDE 15 mmol/L (22-29); CHLORIDE 108 mmol/L (98-107); CREATININE, SERUM 0.92 mg/dL (0.57-1.11); EST GLOMERULAR FILTRATION RATE > 60 ML/MIN (60-); GLUCOSE 103 mg/dL (74-118); POTASSIUM 3.3 mmol/L (3.5-5.1); SODIUM 137 mmol/L (136-145)
[2018-07-09] MEDS ORDERED: SODIUM CHLORIDE 0.9% 1000ML 1,000 ML IV ONE (02:15)
[2018-07-09] MEDS ORDERED: MORPHINE SULFATE 2 MG/ML SYR IV STA (02:16)
--- NOTE | 2018-07-09 03:22 | Diagnostic Imaging Report ---
EXAM: CT Abdomen and Pelvis WITHOUT contrast INDICATION: Left flank pain. ^stone protocol, left flank pain ^[id number] ^0230 ^Y COMPARISON: None. TECHNIQUE: Abdomen and pelvis were scanned utilizing a multidetector helical scanner from the lung base to the pubic symphysis without administration of IV contrast. Absence of intravenous contrast decreases sensitivity for detection of focal lesions and vascular pathology. Coronal and sagittal reformations were obtained. Routine protocol was performed. IV CONTRAST: None ORAL CONTRAST: Water COMPLICATIONS: None RADIATION DOSE: Total DLP: 169.4 mGy*cm Estimated effective dose: (DLP x 0.015 x size factor) mSv CTDIvol has been reviewed. It is below the limits set by the Radiation Protocol Committee (RPC). Dose modulation, iterative reconstruction, and/or weight based adjustment of the mA/kV was utilized to reduce the radiation dose to as low as reasonably achievable. FINDINGS: LINES and TUBES: None. LOWER THORAX: Unremarkable HEPATOBILIARY: No focal hepatic lesions. No biliary ductal dilation. GALLBLADDER: Absent SPLEEN: No splenomegaly. PANCREAS: No focal masses or ductal dilatation. ADRENALS: No adrenal nodules KIDNEYS/URETERS: No hydronephrosis. Fluid attenuating 2 cm lesion in the posterior left kidney likely represents a cyst. Numerous punctate renal calculi bilaterally. GI TRACT: Moderate stool in the colon. Redundant transverse colon. No abnormal distention, wall thickening, or evidence of bowel obstruction. Appendix is normal. PELVIC ORGANS/BLADDER: Left adnexal 4.6 cm fluid attenuating round lesion likely representing a cyst. Retroflexed uterus. LYMPH NODES: No lymphadenopathy. VESSELS: Unremarkable. PERITONEUM / RETROPERITONEUM: No free air or fluid. BONES: Unremarkable. SOFT TISSUES: Unremarkable. IMPRESSION: 1. Numerous nonobstructing renal calculi bilaterally. No hydronephrosis. 2. Left adnexal 4.6 cm cyst which can be further evaluated with pelvic ultrasound if clinically indicated. Signed by: DR. Zachary Galvin MD on 07/09/2018 3:19 AM
[2018-07-09 03:56] LABS: CLARITY,URINE CLOUDY (CLEAR); COLOR,URINE YELLOW (YELLOW); LEUKOCYTE ESTERASE ,URINE 1+ (NEGATIVE); NITRITE,URINE NEGATIVE (NEGATIVE); PROTEIN,URINE DIPSTICK NEGATIVE (NEGATIVE)
[2018-07-09 03:57] LABS: BILIRUBIN,URINE NEGATIVE (NEGATIVE); KETONES,URINE NEGATIVE (NEGATIVE); URINE UROBILINOGEN 0.2 mg/dL (0.2 - 1)
[2018-07-09 04:26] LABS: WBC,URINE (MAN) 21-50 /HPF (0-5)
[2018-07-09 04:27] LABS: BACTERIA,URINE FEW /HPF; EPITHELIAL CELLS,URINE FEW /LPF; YEAST,URINE MODERATE
--- NOTE | 2018-07-09 05:26 | Diagnostic Imaging Report ---
EXAM: Transabdominal and Transvaginal Pelvic Ultrasound INDICATION: Left adnexal cystic structure COMPARISON: CT 07/09/2018 TECHNIQUE: Grayscale transverse and sagittal transabdominal and transvaginal images were obtained of the pelvis. Transvaginal imaging was medically necessary to better evaluate the endometrium and the adnexa. The ovaries were examined with grayscale, color Doppler, and spectral waveform analysis. CLINICAL HISTORY: 32 year old A0; last menstrual period: 06/2018. FINDINGS: Uterus Orientation: Retroflexed Size: 6.5 x 4.1 x 3.4 cm, Normal Mass: None Cervix: Normal Endometrium: Thickness: 0.7 cm, Normal. Appearance: Homogeneous echotexture without focal thickening. Right ovary: Size: 2.9 x 2.2 x 3.3 cm Mass/Cyst: 1.5 x 1.3 x 1.6 cm follicle Vascularity: Normal venous and arterial color flow and waveforms Left ovary: Size: 5.1 x 3.9 x 3.1 cm Mass/Cyst: 4.5 x 3.9 x 4.3 cm lesion with lacelike echoes likely representing a hemorrhagic cyst. Vascularity: Normal venous and arterial color flow and waveforms Adnexa: Normal Cul-de-sac: No free fluid IMPRESSION: Arterial and venous flow is identified in both ovaries. Low likelihood of ovarian torsion. Left ovarian 4.5 cm complex cyst likely represents a hemorrhagic cyst. Otherwise, unremarkable pelvic ultrasound exam. Signed by: DR. Zachary Galvin MD on 07/09/2018 5:23 AM
[2018-07-09] MEDS ORDERED: CEFTRIAXONE SOD 1 GM VIAL IV ONE (05:45)
== END 2018-07-09 06:16 | disposition home or self-care (01) ==
LOC: ER 23:34
DX: M54.5 Low back pain (principal); R11.0 Nausea; N30.90 Cystitis, unspecified without hematuria; N83.202 Unspecified ovarian cyst, left side; I10 Essential (primary) hypertension
CPT/HCPCS: 36415; 74176; 76830; 76856; 80053; 81001; 84702; 85025; 99283; J0696; J1885; J2270; J2405; J7030